=== PATIENT | male | born 1985 | race Hispanic/Latino ===

== ENCOUNTER 2016-04-20 17:35 | Emergency (ER) | payer MEDICAID ==
[2016-04-20 19:21] LABS: Basophils % (Auto) 0.5 % (0.0-1.8); Eosinophils % (Auto) 2.2 % (0.0-4.3); Hematocrit 38.2 % (35.5-45.6); Mean Corpuscular HGB Conc 34 % (32-34); Mean Corpuscular Hemoglobin 32 pg (28-32); Mean Corpuscular Volume 93 fl (84-94); Platelet Count 220 K/mm3 (140-440); Red Cell Distribution Width 12.8 % (13.2-15.2); White Blood Count 5.2 K/mm3 (4.5-11.0)
[2016-04-20 19:30] LABS: Alanine Aminotransferase 10 units/L (7-56); Albumin/Globulin Ratio 1.7 %; Alkaline Phosphatase 78 units/L (35-129); Anion Gap 15 mmol/L; Bilirubin,Total 0.2 mg/dL (0.1-1.2); Blood Urea Nitrogen 19 mg/dL (9-20); Calcium 8.6 mg/dL (8.4-10.2); Carbon Dioxide 29 mmol/L (22-30); Chloride 102.8 mmol/L (98-107); Glucose 91 mg/dL (75-100); Magnesium 2.4 mg/dL (1.7-2.3); Potassium 4.5 mmol/L (3.6-5.0); Sodium 142 mmol/L (137-145); Total Protein 6.4 g/dL (6.3-8.2)
--- NOTE | 2016-04-20 20:06 | Emergency Department Report ---
ED Dizziness HPI - General Chief Complaint: Dizziness Stated Complaint: BACK PAIN Time Seen by Provider: 04/20/16 20:04 Source: patient, EMS Mode of arrival: Stretcher Limitations: Physical Limitation - History of Present Illness Initial Comments: This is a 30-year-old gentleman with chronic lower back pain. He states he is walking up the stairs to this evening when he had sudden onset of excruciating pain in the lower back. He felt a sharp pain from his back that caused him to lose consciousness falling backwards down the stairs. He reports his mother came to his aid. She indicates she seemed somewhat dazed when she found him on the stairs. She tried to help him to his feet but he was unable to stand up due to difficulty with his right leg. He describes a sensation of no feeling in the right leg. MD Complaint: other (back pain) -: Sudden Timing: sudden onset History of Same: No History of Trauma: Yes Severity: moderate Improves With: nothing Worsens With: nothing - Related Data Home Medications Medication Instructions Recorded Confirmed Last Taken LORazepam [Ativan] 1 mg PO BID PRN 01/15/15 04/20/16 01/15/15 FLUoxetine [PROzac] 10 mg PO QDAY 01/27/16 04/20/16 Unknown risperiDONE [RisperiDONE] 1 mg PO QDAY 01/27/16 04/20/16 Unknown Previous Rx's Medication Instructions Recorded Last Taken Type HYDROcodone/APAP 5-325 [[place] 1 each PO Q6HR PRN #14 tablet 11/20/15 Unknown Rx 5/325] Cyclobenzaprine [Flexeril 10 MG 10 mg PO TID PRN #15 tablet 01/27/16 Unknown Rx TAB] traMADol [Ultram] 50 mg PO Q6HR PRN #20 tablet 01/27/16 Unknown Rx Allergies Allergy/AdvReac Type Severity Reaction Status Date / Time No Known Drug Allergies Allergy Unknown Verified 01/15/15 19:20 ED Review of Systems ROS: Stated complaint: BACK PAIN Other details as noted in HPI Constitutional: denies: chills, fever Eyes: denies: eye pain, eye discharge, vision change ENT: denies: ear pain, throat pain Respiratory: denies: cough, shortness of breath, wheezing Cardiovascular: denies: chest pain, palpitations Endocrine: no symptoms reported Gastrointestinal: denies: abdominal pain, nausea, diarrhea Genitourinary: denies: urgency, dysuria Musculoskeletal: back pain, other (leg pains). denies: joint swelling, arthralgia Skin: denies: rash, lesions Neurological: denies: headache, weakness, paresthesias Psychiatric: denies: anxiety, depression Hematological/Lymphatic: denies: easy bleeding, easy bruising ED Past Medical Hx - Past Medical History Hx CVA: Yes (?TIA) Hx Renal Disease: Yes (hx kidney stones) Hx Kidney Stones: Yes Hx Psychiatric Treatment: Yes (PTSD, ANXIETY,depression) Additional medical history: SPINAL STENOSIS, 4 BULGING DISKS - Surgical History Hx Appendectomy: Yes (LAPAROSCOPY) Additional Surgical History: HERNIA REPAIR X2 - Social History Smoking Status: Unknown if ever smoked - Medications Home Medications: Home Medications Medication Instructions Recorded Confirmed Last Taken Type LORazepam [Ativan] 1 mg PO BID PRN 01/15/15 04/20/16 01/15/15 History HYDROcodone/APAP 5-325 [[place] 1 each PO Q6HR PRN #14 tablet 11/20/15 04/20/16 Unknown Rx 5/325] Cyclobenzaprine [Flexeril 10 MG 10 mg PO TID PRN #15 tablet 01/27/16 04/20/16 Unknown Rx TAB] FLUoxetine [PROzac] 10 mg PO QDAY 01/27/16 04/20/16 Unknown History risperiDONE [RisperiDONE] 1 mg PO QDAY 01/27/16 04/20/16 Unknown History traMADol [Ultram] 50 mg PO Q6HR PRN #20 tablet 01/27/16 04/20/16 Unknown Rx ED Physical Exam - General Limitations: Physical Limitation General appearance: alert, in no apparent distress, other (marfanoid) - Head Head exam: Present: atraumatic, normocephalic - Eye Eye exam: Present: normal appearance, PERRL, EOMI - ENT ENT exam: Present: normal exam, normal orophraynx, mucous membranes moist - Neck Neck exam: Present: normal inspection - Respiratory Respiratory exam: Present: normal lung sounds bilaterally. Absent: respiratory distress - Cardiovascular Cardiovascular Exam: Present: regular rate, normal rhythm. Absent: systolic murmur, diastolic murmur, rubs, gallop - GI/Abdominal GI/Abdominal exam: Present: soft, normal bowel sounds - Rectal Rectal exam: Present: deferred - Extremities Exam Extremities exam: Present: normal inspection, full ROM. Absent: tenderness, joint swelling, calf tenderness - Back Exam Back exam: Present: tenderness (paralumbar region and mid aspect. NO bony stepoff) - Neurological Exam Neurological exam: Present: alert, oriented X3, CN II-XII intact, other (walks on heels and toes with slightly antalgic appearance) - Psychiatric Psychiatric exam: Present: normal mood, flat affect - Skin Skin exam: Present: warm, dry, intact, normal color. Absent: rash ED Course Vital Signs 04/20/16 04/20/16 04/20/16 18:19 18:26 18:49 Temperature 98.3 F Pulse Rate 132 H 107 H Respiratory 20 20 20 Rate Blood Pressure 128/74 Blood Pressure 128/74 137/94 [Left] O2 Sat by Pulse 98 98 99 Oximetry 04/20/16 04/20/16 20:27 21:27 Temperature Pulse Rate Respiratory 20 20 Rate Blood Pressure Blood Pressure [Left] O2 Sat by Pulse Oximetry - Reevaluation(s) Reevaluation #1: 04/20/16 21:53 This is a gentleman with a very odd affect in my opinion that his relationship seems to be somewhat odd with his mother as well his activity seemed to be just off. I state this only to emphasize that his initial presentation in the indicated that he had complete and sensation of the right leg and inability to have any control of it or motor strength at all. This clearly was not the case. As I was doing distracting activities and was clearly able to note the leg moving spontaneously and he appeared to have some sensation noted as well he did appetite downward Babinski as well. After obtaining x-rays and labs I did ask the patient to stand up he was able to do this without assistance. He is able to walk on heels and toes as well as to deep knee bend. Clearly he has strength in the legs. Discomfort but there seems to be some secondary gain with when he is not doing. I did find while here that he is father is in the hospital as well for auditory condition. I do wonder if there is some stressors and again some secondary gain with mother that are going on with the episode today. In regards to initial episode of falling down the stairs/having a syncopal episode I truly doubt this as well. Giving the patient the benefit of the doubt do not see any sign of ectopy do not see any electrolyte imbalance as a do not see anything to indicate intracranial pathology for his back pain is appropriate here. Safer home in my opinion ED Medical Decision Making - Lab Data Result diagrams: 04/20/16 18:36 04/20/16 18:36 - EKG Data -: EKG Interpreted by Me (sinus tachycardia at 104 bpm with normal axis and nonspecific q waves) - Radiology Data interpreted by me: Lumbar spine with good vertebral body alignment and no fractures noted no disc space narrowing. Critical care attestation.: If time is entered above; I have spent that time in minutes in the direct care of this critically ill patient, excluding procedure time. ED Disposition Clinical Impression: Syncope, non cardiac Lumbar spine strain Qualifiers: Encounter type: initial encounter Qualified Code(s): S39.012A - Strain of muscle, fascia and tendon of lower back, initial encounter Disposition: DISCHARGED TO HOME OR SELFCARE Is pt being admited?: No Does the pt Need Aspirin: No Condition: Stable Instructions: Syncope (ED) Additional Instructions: No strenuous activities x 1 week. Ibuprofen for anti-inflammatory effects. Consider gentle massage as well. Hydrocodones for pain. Referrals: PRIMARY CARE, [Primary Care Provider] - 3-5 Days Time of Disposition: 21:44
[2016-04-20] MEDS ORDERED: PERCOCET 5/325 PO ONE (20:14)
[2016-04-20 22:22] VITALS: BP 132/88
[2016-04-20] MEDS ORDERED: TORADOL ONE (22:33)
[2016-04-20] MEDS ORDERED: TORADOL IM ONE (22:35)
--- NOTE | 2016-04-21 09:25 | XRay Report ---
Lumbar spine 3 views: History: Low back pain, trauma. Findings: There is suspected osteopenia. Normal height of vertebral bodies and intervertebral disc with narrowing of the lumbosacral interspace. Sclerotic articular surfaces with early degenerative changes being more pronounced at the lumbosacral interspace. Impression: Degenerative changes predominantly lumbosacral interspace.
== END 2016-04-20 22:50 | disposition home or self-care (01) ==
LOC: ED 17:35
DX: S39.012A Strain of muscle, fascia and tendon of lower back, initial encounter (principal); R55 Syncope and collapse; Z86.73 Personal history of transient ischemic attack (TIA), and cerebral infarction without residual deficits; Z87.442 Personal history of urinary calculi; W10.9XXA Fall (on) (from) unspecified stairs and steps, initial encounter; Y93.9 Activity, unspecified; Y92.9 Unspecified place or not applicable; Y99.9 Unspecified external cause status
CPT/HCPCS: 36415; 72100; 80053; 82140; 83735; 84443; 85025; 93005; 93010; 96372; 99285; G0480; J1885; 80320

== ENCOUNTER 2016-06-12 16:18 | Emergency (ER) | payer MEDICAID ==
--- NOTE | 2016-06-12 16:48 | Emergency Department Report ---
Chief Complaint: Chest Pain Stated Complaint: CHEST PAIN Time Seen by Provider: 06/12/16 16:43 - HPI History of Present Illness: PT presents to ED for CP. PT states the cp has been continuous since the onset at 0700. PT states the pain feels like a burning in the left side of his chest. pt states he was given ASA for his pain but no improvement. - ROS Review of Systems: + cp + L arm pain - Exam Physical Exam: PT is non toxic, does appear pale. pt is tachycardic on my initial exam no focal weakness MSE screening note: Focused history and physical exam performed. Due to findings the following was ordered: ekg, xr, labs ED Disposition for MSE Condition: Stable
[2016-06-12 17:47] LABS: Urine Drugs of Abuse Note Disclamer
[2016-06-12 17:54] LABS: Bilirubin,Urine NEG (Negative); Blood,Urine NEG (Negative); Ketones,Urine NEG (Negative); Leukocyte Esterase,Urine NEG (Negative); Mucus,Urine 2+ /HPF; Nitrite,Urine NEG (Negative); Protein,Urine <15 mg/dL mg/dL (Negative); Urobilinogen,Urine < 2.0 mg/dL (<2.0)
[2016-06-12 18:40] LABS: Basophils % (Auto) 0.3 % (0.0-1.8); Eosinophils % (Auto) 0.1 % (0.0-4.3); Hematocrit 41.5 % (35.5-45.6); Hemoglobin 14.1 gm/dl (11.8-15.2); Mean Corpuscular HGB Conc 34 % (32-34); Mean Corpuscular Hemoglobin 32 pg (28-32); Mean Corpuscular Volume 93 fl (84-94); Platelet Count 249 K/mm3 (140-440); Red Blood Count 4.49 M/mm3 (3.65-5.03); Red Cell Distribution Width 12.9 % (13.2-15.2); White Blood Count 8.3 K/mm3 (4.5-11.0)
[2016-06-12 19:07] LABS: Alanine Aminotransferase 50 units/L (7-56); Albumin 4.6 g/dL (3.9-5); Albumin/Globulin Ratio 1.8 %; Alkaline Phosphatase 63 units/L (35-129); Anion Gap 15 mmol/L; BUN/Creatinine Ratio 22.22; Bilirubin,Total 0.5 mg/dL (0.1-1.2); Blood Urea Nitrogen 20 mg/dL (9-20); Calcium 9.7 mg/dL (8.4-10.2); Carbon Dioxide 27 mmol/L (22-30); Chloride 105.3 mmol/L (98-107); Creatine Kinase 153 units/L (55-170); Creatine Kinase MB < 1.0 ng/mL (0.0-4.0); Glucose 98 mg/dL (75-100); Lipase 31 units/L (13-60); Potassium 4.6 mmol/L (3.6-5.0); Sodium 143 mmol/L (137-145); Total Protein 7.2 g/dL (6.3-8.2)
[2016-06-12 20:52] VITALS: BP 147/107
--- NOTE | 2016-06-13 07:26 | XRay Report ---
ROUTINE CHEST, TWO VIEWS: HISTORY: chest pain. The trachea, heart, mediastinal contour, lung herrera and bony thorax are unremarkable. IMPRESSION: Unremarkable chest x-ray.
--- NOTE | 2016-06-13 15:18 | ED Elopement Review ---
ED Pt Elopement review - Results review Lab results: Laboratory Tests 06/12/16 06/12/16 06/12/16 17:40 17:40 18:31 WBC 8.3 RBC 4.49 Hgb 14.1 Hct 41.5 MCV 93 MCH 32 MCHC 34 RDW 12.9 L Plt Count 249 Lymph % (Auto) 22.4 [place] % (Auto) 9.3 H Eos % (Auto) 0.1 Baso % (Auto) 0.3 Lymph # 1.9 [place] # 0.8 Eos # 0.0 Baso # 0.0 Seg Neutrophils % 67.9 Seg Neutrophils # 5.6 Sodium Potassium Chloride Carbon Dioxide Anion Gap BUN Creatinine Estimated GFR BUN/Creatinine Ratio Glucose Calcium Total Bilirubin AST ALT Alkaline Phosphatase Total Creatine Kinase CK-MB (CK-2) CK-MB (CK-2) Rel Index Troponin T Total Protein Albumin Albumin/Globulin Ratio Lipase Urine Color Yellow Urine Turbidity Clear Urine pH 5.0 Ur Specific Bradley 1.026 Urine Protein <15 mg/dl Urine Glucose (UA) Neg Urine Ketones Neg Urine Blood Neg Urine Nitrite Neg Urine Bilirubin Neg Urine Urobilinogen < 2.0 Ur Leukocyte Esterase Neg Urine WBC (Auto) 1.0 Urine RBC (Auto) 1.0 Urine Mucus 2+ Urine Opiates Screen Presumptive negative Urine Methadone Screen Presumptive negative Ur Barbiturates Screen Presumptive negative Ur Phencyclidine Scrn Presumptive negative Ur Amphetamines Screen Presumptive negative U Benzodiazepines Scrn Presumptive negative Urine Cocaine Screen Presumptive negative U Marijuana (THC) Screen Presumptive negative Drugs of Abuse Note Disclamer 06/12/16 06/12/16 18:31 23:24 WBC RBC Hgb Hct MCV MCH MCHC RDW Plt Count Lymph % (Auto) [place] % (Auto) Eos % (Auto) Baso % (Auto) Lymph # [place] # Eos # Baso # Seg Neutrophils % Seg Neutrophils # Sodium 143 Potassium 4.6 Chloride 105.3 Carbon Dioxide 27 Anion Gap 15 BUN 20 Creatinine 0.9 Estimated GFR > 60 BUN/Creatinine Ratio 22.22 Glucose 98 Calcium 9.7 Total Bilirubin 0.5 AST 35 ALT 50 Alkaline Phosphatase 63 Total Creatine Kinase 153 CK-MB (CK-2) < 1.0 CK-MB (CK-2) Rel Index 0.6 Troponin T < 0.010 < 0.010 Total Protein 7.2 Albumin 4.6 Albumin/Globulin Ratio 1.8 Lipase 31 Urine Color Urine Turbidity Urine pH Ur Specific Bradley Urine Protein Urine Glucose (UA) Urine Ketones Urine Blood Urine Nitrite Urine Bilirubin Urine Urobilinogen Ur Leukocyte Esterase Urine WBC (Auto) Urine RBC (Auto) Urine Mucus Urine Opiates Screen Urine Methadone Screen Ur Barbiturates Screen Ur Phencyclidine Scrn Ur Amphetamines Screen U Benzodiazepines Scrn Urine Cocaine Screen U Marijuana (THC) Screen Drugs of Abuse Note - Call Back decision Pt Call Back Decision: No action required
== END 2016-06-13 02:15 | disposition left against medical advice (07) ==
LOC: ED 16:18 → EEVIPCON 16:18 → ED 06-13 02:15
DX: R07.9 Chest pain, unspecified (principal); M79.602 Pain in left arm; Z53.21 Procedure and treatment not carried out due to patient leaving prior to being seen by health care provider
CPT/HCPCS: 36415; 71020; 80053; 80307; 81001; 82550; 82553; 83690; 84484; 85025; 93005; 93010

== ENCOUNTER 2016-07-10 17:25 | Emergency (ER) | payer MEDICAID ==
[2016-07-10] MEDS ORDERED: NACL 0.9% 1000 ML 1,000 ML IV ONE (20:12)
[2016-07-10 20:42] LABS: Basophils % (Auto) 0.4 % (0.0-1.8); Eosinophils % (Auto) 0.3 % (0.0-4.3); Hematocrit 42.7 % (35.5-45.6); Hemoglobin 14.7 gm/dl (11.8-15.2); Mean Corpuscular HGB Conc 35 % (32-34); Mean Corpuscular Hemoglobin 32 pg (28-32); Mean Corpuscular Volume 92 fl (84-94); Platelet Count 249 K/mm3 (140-440); Red Blood Count 4.63 M/mm3 (3.65-5.03); Red Cell Distribution Width 13.1 % (13.2-15.2); White Blood Count 8.4 K/mm3 (4.5-11.0)
[2016-07-10 20:52] LABS: INR 1.03 (0.87-1.13); Partial Thromboplastin Time 28.1 Sec. (24.2-36.6)
[2016-07-10 21:05] LABS: Alanine Aminotransferase 23 units/L (7-56); Albumin 4.4 g/dL (3.9-5); Albumin/Globulin Ratio 1.6 %; Alkaline Phosphatase 67 units/L (35-129); BUN/Creatinine Ratio 23.75; Bilirubin,Total 0.4 mg/dL (0.1-1.2); Blood Urea Nitrogen 19 mg/dL (9-20); Calcium 9.4 mg/dL (8.4-10.2); Carbon Dioxide 25 mmol/L (22-30); Glucose 100 mg/dL (75-100); Lipase 23 units/L (13-60); Potassium 4.2 mmol/L (3.6-5.0); Sodium 142 mmol/L (137-145); Total Protein 7.2 g/dL (6.3-8.2)
[2016-07-10 21:06] LABS: Anion Gap 19 mmol/L; Chloride 102.3 mmol/L (98-107)
[2016-07-10] MEDS: MORPHINE IV ONE (23:38)
[2016-07-10] MEDS: NACL 0.9% 1000 ML 1,000 ML IV ONE (23:38)
[2016-07-10] MEDS: ZOFRAN IV ONE (23:38)
[2016-07-10] MEDS ORDERED: NACL ONE (23:41)
--- NOTE | 2016-07-11 01:09 | Cat Scan Report ---
FINAL REPORT PROCEDURE: CT ABDOMEN PELVIS W CON TECHNIQUE: Computerized axial tomography of the abdomen and pelvis was performed after the IV injection of iodinated nonionic contrast. Oral contrast was not given. HISTORY: Abdominal pain and recurrent right inguinal hernia. COMPARISON: Prior abdomen and pelvic CT scans of January 10, 2016 and October 09 2015 FINDINGS: Visualized lower thorax: No significant abnormality. Liver: Normal size and attenuation. Spleen: Normal size and attenuation. Gallbladder and biliary system: Normal. Pancreas: Normal. Adrenals: Normal. Kidneys: Normal. GI tract: There is mild sigmoid colon diverticulosis but there is no CT evidence of diverticulitis. The bowel appears unremarkable otherwise when considering of oral contrast. The appendix is not identified. The reports of the prior CT scans described that the patient has had a prior appendectomy. There are surgical clips in the right lower quadrant. There is no CT evidence of inguinal hernia on the right or left.. Lymph nodes and mesentery: Normal. Vasculature: Normal. Bladder: Normal. Reproductive organs: Normal. Peritoneum: No free fluid. Musculoskeletal structures: No significant abnormality. Other: None. IMPRESSION: 1. There is no CT evidence of distinct acute finding in the abdomen or pelvis. 2. There is mild sigmoid colon diverticulosis but there is no CT evidence of diverticulitis. 3. There is no CT evidence of inguinal hernia.
--- NOTE | 2016-07-11 01:25 | Emergency Department Report ---
ED Abdominal Pain HPI - General Chief Complaint: GI Bleed Stated Complaint: SYNCOPAL EPISODE Time Seen by Provider: 07/10/16 22:35 Source: patient, family Mode of arrival: Stretcher Limitations: Other - History of Present Illness Initial Comments: 30 yo male with a past medical history schizophrenia, PTSD, anxiety, kidney stones, and bilateral inguinal hernia repair presents to the hospital with complaint of right inguinal pain with possible recurrent hernia, black stools today, and a syncopal episode. For the past 2 weeks patient has noticed increased swelling to right inguinal area and is concerned about recurrent hernia. Patient has had 2 surgeries to this area in the past with last in 2009. Patient also had a left inguinal hernia repair 2009. The last several days patient has had a constant sharp and aching pain to the right lower quadrant and lower abdomen area. Rated 10/10 in intensity without alleviating factors. Pain worsened palpation. Patient has not had much to eat or drink today secondary to pain and he slept for 14 hours today. 3 hours prior to arrival patient stood up and then had a syncopal episode witnessed by his mother. She states he was passed out for a couple seconds. Patient denies headache, chest pain, shortness of breath, nausea, vomiting, hematochezia, or hematemesis. He has complaint of black tarry stools today as per mother Severity scale (0 -10): 9 - Related Data Home Medications Medication Instructions Recorded Confirmed Last Taken LORazepam [Ativan] 1 mg PO BID PRN 01/15/15 04/20/16 01/15/15 FLUoxetine [PROzac] 10 mg PO QDAY 01/27/16 04/20/16 Unknown risperiDONE [RisperiDONE] 1 mg PO QDAY 01/27/16 04/20/16 Unknown Previous Rx's Medication Instructions Recorded Last Taken Type Cyclobenzaprine [Flexeril 10 MG 10 mg PO TID PRN #15 tablet 01/27/16 Unknown Rx TAB] traMADol [Ultram] 50 mg PO Q6HR PRN #20 tablet 01/27/16 Unknown Rx Docusate Sodium [Colace] 100 mg PO BID PRN #20 capsule 07/11/16 Unknown Rx HYDROcodone/APAP 5-325 [[place] 1 each PO Q6HR PRN #15 tablet 07/11/16 Unknown Rx 5-325 mg TAB] Ondansetron [Zofran Odt] 4 mg PO Q8HR PRN #20 tab.rapdis 07/11/16 Unknown Rx Allergies Allergy/AdvReac Type Severity Reaction Status Date / Time No Known Drug Allergies Allergy Unknown Verified 06/12/16 16:54 ED Review of Systems ROS: Stated complaint: SYNCOPAL EPISODE Other details as noted in HPI Comment: All other systems reviewed and negative Other: Constitutional: No fevers chills Eyes: No eye pain visual changes ENT: No ear pain or throat pain Neck: Denies pain Respiratory: Denies cough wheezing shortness of breath Cardiovascular: Denies chest pain, palpitations GI: Per HPI : Denies dysuria Musculoskeletal: Denies back pain Skin: Denies rash, lesions, erythema Neurologic: Denies headache, numbness, weakness Psychiatric: Denies suicidal ideation, hallucinations ED Past Medical Hx - Past Medical History Hx CVA: Yes (?TIA) Hx Renal Disease: Yes (hx kidney stones) Hx Kidney Stones: Yes Hx Psychiatric Treatment: Yes (PTSD, ANXIETY,depression/ schizophrenia) Additional medical history: SPINAL STENOSIS, 4 BULGING DISKS - Surgical History Hx Appendectomy: Yes (LAPAROSCOPY) Additional Surgical History: Right inguinal hernia repair for the second time in 2009, left inguinal hernia repair in 2009 - Social History Smoking Status: Never Smoker Substance Use Type: None - Medications Home Medications: Home Medications Medication Instructions Recorded Confirmed Last Taken Type LORazepam [Ativan] 1 mg PO BID PRN 01/15/15 04/20/16 01/15/15 History Cyclobenzaprine [Flexeril 10 MG 10 mg PO TID PRN #15 tablet 01/27/16 04/20/16 Unknown Rx TAB] FLUoxetine [PROzac] 10 mg PO QDAY 01/27/16 04/20/16 Unknown History risperiDONE [RisperiDONE] 1 mg PO QDAY 01/27/16 04/20/16 Unknown History traMADol [Ultram] 50 mg PO Q6HR PRN #20 tablet 01/27/16 04/20/16 Unknown Rx Docusate Sodium [Colace] 100 mg PO BID PRN #20 capsule 07/11/16 Unknown Rx HYDROcodone/APAP 5-325 [[place] 1 each PO Q6HR PRN #15 tablet 07/11/16 Unknown Rx 5-325 mg TAB] Ondansetron [Zofran Odt] 4 mg PO Q8HR PRN #20 tab.rapdis 07/11/16 Unknown Rx ED Physical Exam - General Limitations: Other - Other Other exam information: General: No limitations, patient is alert in no acute distress Head exam: Atraumatic, normocephalic Eyes exam: Normal appearance, pupils equal reactive to light, extraocular movements intact ENT: Moist mucous membrane, normal oropharynx Neck exam: Normal inspection, full range of motion, no meningismus nontender Respiratory exam: Clear to auscultation bilateral, no wheezes, rales, crackles Cardiovascular: Normal rate and rhythm, normal heart sounds Abdomen: Soft, mild questionable right inguinal area bulging and appears reducible. No scrotal swelling or testicular pain. Rectal: Guaiac positive brown/green stool. No gross blood or melena detected Extremity: Full range of motion normal inspection no deformity Back: Normal Inspection, full range of motion, no tenderness Neurologic: Alert, oriented x3, cranial nerves intact, no motor or sensory deficit Psychiatric: normal affect, normal mood Skin: Warm, dry, intact ED Course Vital Signs 07/10/16 07/10/16 07/10/16 19:59 23:18 23:35 Temperature 98.2 F 98.2 F Pulse Rate 88 78 Pulse Rate [ 80 Lying] Pulse Rate [ 82 Sitting] Pulse Rate [ 112 H Standing] Respiratory 16 16 Rate Blood Pressure 128/92 Blood Pressure 128/92 132/84 [Left] Blood Pressure 130/87 [Lying] Blood Pressure 134/93 [Sitting] Blood Pressure 142/95 [Standing] O2 Sat by Pulse 100 99 Oximetry 07/11/16 01:42 Temperature 98.3 F Pulse Rate 79 Pulse Rate [ Lying] Pulse Rate [ Sitting] Pulse Rate [ Standing] Respiratory 15 Rate Blood Pressure Blood Pressure 125/83 [Left] Blood Pressure [Lying] Blood Pressure [Sitting] Blood Pressure [Standing] O2 Sat by Pulse 100 Oximetry - Reevaluation(s) Reevaluation #1: 07/11/16 01:25 Patient received morphine and Zofran with some improvement in pain but requesting additional dose at this time. Orthostatics were positive in revealing a heart rate increased greater than 20 bpm was standing. Patient receiving the rest of his 1 L of normal saline in addition to repeat dose of morphine brought appears to be comfortable without acute distress ED Medical Decision Making - Lab Data Result diagrams: 07/10/16 20:14 07/10/16 20:14 Lab Results 07/10/16 07/10/16 07/10/16 Range/Units 20:14 20:14 20:14 WBC 8.4 (4.5-11.0) K/mm3 RBC 4.63 (3.65-5.03) M/mm3 Hgb 14.7 (11.8-15.2) gm/dl Hct 42.7 (35.5-45.6) % MCV 92 (84-94) fl MCH 32 (28-32) pg MCHC 35 H (32-34) % RDW 13.1 L (13.2-15.2) % Plt Count 249 (140-440) K/mm3 Lymph % (Auto) 24.5 (13.4-35.0) % [place] % (Auto) 9.1 H (0.0-7.3) % Eos % (Auto) 0.3 (0.0-4.3) % Baso % (Auto) 0.4 (0.0-1.8) % Lymph # 2.1 (1.2-5.4) K/mm3 [place] # 0.8 (0.0-0.8) K/mm3 Eos # 0.0 (0.0-0.4) K/mm3 Baso # 0.0 (0.0-0.1) K/mm3 Seg Neutrophils % 65.7 (40.0-70.0) % Seg Neutrophils # 5.5 (1.8-7.7) K/mm3 PT 13.4 (12.2-14.9) Sec. INR 1.03 (0.87-1.13) APTT 28.1 (24.2-36.6) Sec. Sodium 142 (137-145) mmol/L Potassium 4.2 (3.6-5.0) mmol/L Chloride 102.3 (98-107) mmol/L Carbon Dioxide 25 (22-30) mmol/L Anion Gap 19 mmol/L BUN 19 (9-20) mg/dL Creatinine 0.8 (0.8-1.5) mg/dL Estimated GFR > 60 ml/min BUN/Creatinine Ratio 23.75 % Glucose 100 (75-100) mg/dL Calcium 9.4 (8.4-10.2) mg/dL Total Bilirubin 0.4 (0.1-1.2) mg/dL AST 20 (5-40) units/L ALT 23 (7-56) units/L Alkaline Phosphatase 67 (35-129) units/L Total Protein 7.2 (6.3-8.2) g/dL Albumin 4.4 (3.9-5) g/dL Albumin/Globulin Ratio 1.6 % Lipase 23 (13-60) units/L Blood Type Antibody Screen TAM Antibody Screen 07/10/16 Range/Units 20:25 WBC (4.5-11.0) K/mm3 RBC (3.65-5.03) M/mm3 Hgb (11.8-15.2) gm/dl Hct (35.5-45.6) % MCV (84-94) fl MCH (28-32) pg MCHC (32-34) % RDW (13.2-15.2) % Plt Count (140-440) K/mm3 Lymph % (Auto) (13.4-35.0) % [place] % (Auto) (0.0-7.3) % Eos % (Auto) (0.0-4.3) % Baso % (Auto) (0.0-1.8) % Lymph # (1.2-5.4) K/mm3 [place] # (0.0-0.8) K/mm3 Eos # (0.0-0.4) K/mm3 Baso # (0.0-0.1) K/mm3 Seg Neutrophils % (40.0-70.0) % Seg Neutrophils # (1.8-7.7) K/mm3 PT (12.2-14.9) Sec. INR (0.87-1.13) APTT (24.2-36.6) Sec. Sodium (137-145) mmol/L Potassium (3.6-5.0) mmol/L Chloride (98-107) mmol/L Carbon Dioxide (22-30) mmol/L Anion Gap mmol/L BUN (9-20) mg/dL Creatinine (0.8-1.5) mg/dL Estimated GFR ml/min BUN/Creatinine Ratio % Glucose (75-100) mg/dL Calcium (8.4-10.2) mg/dL Total Bilirubin (0.1-1.2) mg/dL AST (5-40) units/L ALT (7-56) units/L Alkaline Phosphatase (35-129) units/L Total Protein (6.3-8.2) g/dL Albumin (3.9-5) g/dL Albumin/Globulin Ratio % Lipase (13-60) units/L Blood Type O POSITIVE Antibody Screen TNR TAM Antibody Screen Negative - EKG Data -: EKG Interpreted by Me (nsr rate 94, jaxson, septal q) - EKG Data When compared to previous EKG there are: no significant change (compared to 06/12) - Radiology Data Radiology results: report reviewed (CT abdomen and pelvis IV contrast: No acute findings. Mild sigmoid colon diverticulosis but no diverticulitis. No CT evidence of inguinal hernia) - Medical Decision Making I believe that patient's syncopal episode was related to orthostasis while standing. Patient has not had a drink today secondary to abdominal pain. Patient received 1 L of IV fluids prior to discharge Patient does have guaiac positive stools but they are brown/green in color without gross melena or hematochezia. Normal H&H without signs of anemia. Patient was to be encouraged to avoid NSAIDs at this time and GI follow-up will be provided. For persistent abdominal pain there is no specific cause identified. No recurrent hernia or CT abnormality. Patient be treated symptomatically with pain medication and nausea. - Differential Diagnosis recurrent hernia, renal colic, UTI, dehydration, anemia, PUD Critical Care Time: No Critical care attestation.: If time is entered above; I have spent that time in minutes in the direct care of this critically ill patient, excluding procedure time. ED Disposition Clinical Impression: Abdominal pain, Dehydration, Orthostatic syncope, Guaiac + stool Disposition: DISCHARGED TO HOME OR SELFCARE Is pt being admited?: No Does the pt Need Aspirin: No Condition: Stable Instructions: Rectal Bleeding (ED), Dehydration (ED), Syncope (ED), Acute Abdominal Pain (ED) Additional Instructions: Continue drinking plenty of fluids and eat appropriately at home. Take the medication as prescribed. Hydrocodone is a narcotic and may cause drowsiness and constipation. Take a stool softener Colace as needed. It is very important that you follow-up with a GI doctor for further workup and evaluation since no cause of your blood in your stools has been identified today. Please return if symptoms worsen. Prescriptions: Docusate Sodium [Colace] 100 mg PO BID PRN #20 capsule PRN Reason: Constipation HYDROcodone/APAP 5-325 [[place] 5-325 mg TAB] 1 each PO Q6HR PRN #15 tablet PRN Reason: Pain Ondansetron [Zofran Odt] 4 mg PO Q8HR PRN #20 tab.rapdis PRN Reason: Nausea And Vomiting Referrals: PRIMARY CARE, [Primary Care Provider] - 3-5 Days SHYLA BRADLEY MD [Staff Physician] - 2-3 Days Forms: Accompanied Note Time of Disposition: 02:00
[2016-07-11] MEDS: MORPHINE IV ONE (01:42)
[2016-07-11 01:43] VITALS: BP 125/83
== END 2016-07-11 02:07 | disposition home or self-care (01) ==
LOC: ED 17:25
DX: R19.5 Other fecal abnormalities (principal); R10.30 Lower abdominal pain, unspecified; R55 Syncope and collapse; E86.0 Dehydration; F20.9 Schizophrenia, unspecified
CPT/HCPCS: 36415; 74177; 80053; 82271; 83690; 85025; 85610; 85730; 86850; 86900; 86901; 93005; 93010; 96361; 96374; 96375; 96376; 99285; J2270; J2405; J7030; Q9967

== ENCOUNTER 2016-11-20 04:59 | Emergency (ER) | payer MEDICAID ==
[2016-11-20 06:02] VITALS: BP 125/87
[2016-11-20 07:04] LABS: Basophils % (Auto) 0.5 % (0.0-1.8); Eosinophils % (Auto) 0.9 % (0.0-4.3); Hemoglobin 13.5 gm/dl (11.8-15.2); Mean Corpuscular HGB Conc 35 % (32-34); Mean Corpuscular Hemoglobin 31 pg (28-32); Mean Corpuscular Volume 90 fl (84-94); Platelet Count 243 K/mm3 (140-440); Red Blood Count 4.33 M/mm3 (3.65-5.03); Red Cell Distribution Width 13.3 % (13.2-15.2); White Blood Count 6.8 K/mm3 (4.5-11.0)
[2016-11-20 07:05] LABS: Anion Gap 19 mmol/L; BUN/Creatinine Ratio 16.25; Blood Urea Nitrogen 13 mg/dL (9-20); Calcium 9.3 mg/dL (8.4-10.2); Carbon Dioxide 24 mmol/L (22-30); Chloride 102.4 mmol/L (98-107); Glucose 104 mg/dL (75-100); Sodium 141 mmol/L (137-145)
--- NOTE | 2016-11-20 07:15 | Cat Scan Report ---
FINAL REPORT EXAM: CT HEAD/BRAIN WO CON HISTORY: s/p fall TECHNIQUE: CT imaging acquired through the head without intravenous contrast. Transaxial reformations are provided. PRIORS: 01/10/2016 FINDINGS: The ventricles, cisterns and sulci are normal. No intraparenchymal or extra-axial mass, hemorrhage, or mass effect. Mejia and white-matter differentiation is normal. Normal spherical shape of the globes. Paranasal sinuses and mastoid air cells are clear. No skull or facial fracture visualized. IMPRESSION: No acute intracranial abnormality.
--- NOTE | 2016-11-20 07:17 | Cat Scan Report ---
FINAL REPORT EXAM: CT CERVICAL SPINE WO CON HISTORY: s/p fall TECHNIQUE: CT imaging is acquired through the cervical spine without contrast. Transaxial, coronal and sagittal reformations are provided. PRIORS: 01/10/2016 FINDINGS: The cervical spine is intact. Vertebral body heights are preserved. No acute fracture or listhesis. Atlanto-dens interval and odontoid process are intact. Intervertebral disc spaces are preserved. No perivertebral soft tissue swelling or hematoma identified. Limited soft tissue exam of the visualized neck is unremarkable. IMPRESSION: No acute cervical spine fracture identified. Correlate with physical exam and follow up as warranted.
== END 2016-11-20 12:12 | disposition left against medical advice (07) ==
LOC: ED 04:59
DX: R51 Headache (principal); M54.2 Cervicalgia; Z53.21 Procedure and treatment not carried out due to patient leaving prior to being seen by health care provider
CPT/HCPCS: 36415; 70450; 72125; 80048; 85025; 93005; 93010

== ENCOUNTER 2017-11-25 22:39 | Emergency (ER) | payer SELFPAY ==
[2017-11-25 23:22] VITALS: BP 150/101
[2017-11-26 00:46] LABS: Basophils % (Auto) 0.7 % (0.0-1.8); Eosinophils # (Auto) 0.2 K/mm3 (0.0-0.4); Eosinophils % (Auto) 3.7 % (0.0-4.3); Hematocrit 37.9 % (35.5-45.6); Hemoglobin 12.9 gm/dl (11.8-15.2); Lymphocytes # (Auto) 2.2 K/mm3 (1.2-5.4); Lymphocytes % (Auto) 36.4 % (13.4-35.0); Mean Corpuscular HGB Conc 34 % (32-34); Mean Corpuscular Hemoglobin 31 pg (28-32); Mean Corpuscular Volume 92 fl (84-94); Monocytes # (Auto) 0.6 K/mm3 (0.0-0.8); Monocytes % (Auto) 10.2 % (0.0-7.3); Platelet Count 240 K/mm3 (140-440); Red Blood Count 4.11 M/mm3 (3.65-5.03); Red Cell Distribution Width 14.1 % (13.2-15.2)
--- NOTE | 2017-11-26 01:05 | XRay Report ---
FINAL REPORT EXAM: XR SPINE LUMBOSACRAL 2-3V HISTORY: back pain TECHNIQUE: 3 views of the lumbar spine PRIORS: None. FINDINGS: L5-S1 is not demonstrated on the lateral view. The vertebral bodies are normal in height and alignment. The disc spaces appear well-preserved. The soft tissues are unremarkable. IMPRESSION: Limited evaluation of the lumbar spine is unremarkable.
[2017-11-26 01:10] LABS: Alanine Aminotransferase 46 units/L (7-56); BUN/Creatinine Ratio 16; Blood Urea Nitrogen 11 mg/dL (9-20); Calcium 9.2 mg/dL (8.4-10.2); Hemolysis Index 21
== END 2017-11-26 00:26 | disposition left against medical advice (07) ==
LOC: ED 22:39
DX: M54.2 Cervicalgia (principal); Z53.21 Procedure and treatment not carried out due to patient leaving prior to being seen by health care provider
CPT/HCPCS: 36415; 72100; 80053; 85025; 93005; 93010

== ENCOUNTER 2017-12-14 15:42 | Emergency (ER) | payer SELFPAY ==
[2017-12-14 16:09] VITALS: BP 139/89
--- NOTE | 2017-12-14 17:12 | Cat Scan Report ---
FINAL REPORT EXAM: CT HEAD/BRAIN WO CON HISTORY: confusion, left arm weakness. TECHNIQUE: Noncontrast CT axial images of the brain. PRIORS: 20 November 2016. FINDINGS: No parenchymal mass, mass effect, hemorrhage, midline shift or hydrocephalus. No evidence of acute cortical infarct. No abnormal, extra-axial fluid or air collection. Osseous calvarium grossly intact. IMPRESSION: 1. No acute intracranial findings.
== END 2017-12-14 20:56 | disposition left against medical advice (07) ==
LOC: ED 15:42
DX: R20.0 Anesthesia of skin (principal); Z53.21 Procedure and treatment not carried out due to patient leaving prior to being seen by health care provider
CPT/HCPCS: 70450

== ENCOUNTER 2018-10-04 21:18 | Emergency (ER) | payer MEDICAID ==
[2018-10-04 21:47] VITALS: BP 136/90
--- NOTE | 2018-10-04 21:59 | Event Note ---
ED Screening Note Date of service: 10/04/18 Time: 21:54 ED Screening Note: 33 y/o male comes in for back pain. Patient fell on his back while at the park this evening. pmh Chronic back pain. This initial assessment/diagnostic orders/clinical plan/treatment(s) is/are subject to change based on patients health status, clinical progression and re- assessment by fellow clinical providers in the ED. Further treatment and workup at subsequent clinical providers discretion. Patient/guardian urged not to elope from the ED as their condition may be serious if not clinically assessed and managed. Initial orders include:
[2018-10-04] MEDS ORDERED: FLEXERIL PO ONE (22:43)
[2018-10-04] MEDS ORDERED: TORADOL IM ONE (22:43)
--- NOTE | 2018-10-04 22:45 | XRay Report ---
LUMBAR SPINE, 3 VIEWS INDICATION / CLINICAL INFORMATION: fall on back now with pain.. COMPARISON: Vertebral body heights and disc spaces are maintained. Posterior alignment is normal. No visible frac ture or significant degenerative change. FINDINGS: No significant abnormality. Signer Name: Denise Mcmahan MD Signed: 10/04/2018 10:41 PM Workstation Name: [id number]
--- NOTE | 2018-10-04 22:47 | Emergency Department Report ---
ED Back Pain/Injury HPI - General Chief Complaint: Back Pain/Injury Stated Complaint: BACK PAIN Time Seen by Provider: 10/04/18 22:32 Source: patient Limitations: No Limitations - History of Present Illness Initial Comments: Patient is a 33-year-old male who presents to the emergency room with complaints of lower back pain that began today. He states he was playing at the park with his kids and fell onto his lower back. States he has a history of chronic back pain with a hx of degenerative disc disease and spinal stenosis per patient. He denies any bowel or bladder incontinence. He does not report any numbness or weakness. Patient denies any past medical history or allergies to medications. - Related Data Home Medications Medication Instructions Recorded Confirmed Last Taken LORazepam [Ativan] 1 mg PO BID PRN 01/15/15 04/20/16 01/15/15 FLUoxetine [PROzac] 10 mg PO QDAY 01/27/16 04/20/16 Unknown risperiDONE [RisperiDONE] 1 mg PO QDAY 01/27/16 04/20/16 Unknown Previous Rx's Medication Instructions Recorded Last Taken Type Cyclobenzaprine [Flexeril 10 MG 10 mg PO TID PRN #15 tablet 01/27/16 Unknown Rx TAB] traMADol [Ultram] 50 mg PO Q6HR PRN #20 tablet 01/27/16 Unknown Rx Docusate Sodium [Colace] 100 mg PO BID PRN #20 capsule 07/11/16 Unknown Rx HYDROcodone/APAP 5-325 [[place] 1 each PO Q6HR PRN #15 tablet 07/11/16 Unknown Rx 5-325 mg TAB] Ondansetron [Zofran Odt] 4 mg PO Q8HR PRN #20 tab.rapdis 07/11/16 Unknown Rx Cyclobenzaprine [Flexeril] 10 mg PO QHS PRN #10 tablet 10/04/18 Unknown Rx Naproxen [Naprosyn TAB] 500 mg PO BID PRN #20 tablet 10/04/18 Unknown Rx Allergies Allergy/AdvReac Type Severity Reaction Status Date / Time No Known Drug Allergies Allergy Unknown Verified 06/12/16 16:54 ED Review of Systems ROS: Stated complaint: BACK PAIN Other details as noted in HPI Comment: All other systems reviewed and negative ED Past Medical Hx - Past Medical History Previous Medical History?: Yes Hx CVA: Yes (?TIA) Hx Renal Disease: Yes (hx kidney stones) Hx Kidney Stones: Yes Hx Psychiatric Treatment: Yes (PTSD, ANXIETY,depression/ schizophrenia) Additional medical history: SPINAL STENOSIS, 4 BULGING DISKS - Surgical History Past Surgical History?: Yes Hx Appendectomy: Yes Additional Surgical History: Right inguinal hernia repair for the second time in 2009, left inguinal hernia repair in 2009 - Social History Smoking Status: Never Smoker Substance Use Type: None - Medications Home Medications: Home Medications Medication Instructions Recorded Confirmed Last Taken Type LORazepam [Ativan] 1 mg PO BID PRN 01/15/15 04/20/16 01/15/15 History Cyclobenzaprine [Flexeril 10 MG 10 mg PO TID PRN #15 tablet 01/27/16 04/20/16 Unknown Rx TAB] FLUoxetine [PROzac] 10 mg PO QDAY 01/27/16 04/20/16 Unknown History risperiDONE [RisperiDONE] 1 mg PO QDAY 01/27/16 04/20/16 Unknown History traMADol [Ultram] 50 mg PO Q6HR PRN #20 tablet 01/27/16 04/20/16 Unknown Rx Docusate Sodium [Colace] 100 mg PO BID PRN #20 capsule 07/11/16 Unknown Rx HYDROcodone/APAP 5-325 [[place] 1 each PO Q6HR PRN #15 tablet 07/11/16 Unknown Rx 5-325 mg TAB] Ondansetron [Zofran Odt] 4 mg PO Q8HR PRN #20 tab.rapdis 07/11/16 Unknown Rx Cyclobenzaprine [Flexeril] 10 mg PO QHS PRN #10 tablet 10/04/18 Unknown Rx Naproxen [Naprosyn TAB] 500 mg PO BID PRN #20 tablet 10/04/18 Unknown Rx ED Physical Exam - General Limitations: No Limitations General appearance: alert, in no apparent distress - Head Head exam: Present: atraumatic, normocephalic - Eye Eye exam: Present: normal appearance, PERRL - ENT ENT exam: Present: mucous membranes moist - Neck Neck exam: Present: normal inspection, full ROM. Absent: tenderness - Respiratory Respiratory exam: Present: normal lung sounds bilaterally. Absent: respiratory distress, wheezes, rales, rhonchi, stridor, chest wall tenderness, accessory muscle use, decreased breath sounds, prolonged expiratory - Cardiovascular Cardiovascular Exam: Present: regular rate, normal rhythm, normal heart sounds. Absent: systolic murmur, diastolic murmur, rubs, gallop - Back Exam Back exam: Present: normal inspection, full ROM, paraspinal tenderness (right sided lumbar paraspinal muscular TTP, no midline C-spine, T-spine, or L-spine tenderness, no step offs, no deformities). 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 Absent: motor sensory deficit - Psychiatric Psychiatric exam: Present: normal affect, normal mood - Skin Skin exam: Present: warm, dry, intact ED Course Vital Signs 10/04/18 10/04/18 21:29 23:30 Temperature 98.3 F Pulse Rate 97 H Respiratory 18 16 Rate Blood Pressure 136/90 O2 Sat by Pulse 97 Oximetry ED Medical Decision Making - Radiology Data Radiology results: report reviewed cc: FREDY GARAY Fluoro Time In Minutes: LUMBAR SPINE, 3 VIEWS INDICATION / CLINICAL INFORMATION: fall on back now with pain.. COMPARISON: Vertebral body heights and disc spaces are maintained. Posterior alignment is normal. No visible fracture or significant degenerative change. FINDINGS: No significant abnormality. Signer Name: Denise Mcmahan MD Signed: 10/04/2018 10:41 PM Workstation Name: [id number] Transcribed By: JR Dictated By: Denise Mcmahan MD Electronically Authenticated By: J - Medical Decision Making Patient is a 33-year-old male who presents to the emergency room with complaints of lower back pain that began today. He states he was playing at the park with his kids and fell onto his lower back. States he has a history of chronic back pain with a hx of degenerative disc disease and spinal stenosis per patient. He denies any bowel or bladder incontinence. He does not report any numbness or weakness. Patient denies any past medical history or allergies to medications. VSS. on exam: right sided lumbar paraspinal muscular TTP, no midline C-spine, T- spine, or L-spine tenderness, no step offs, no deformities, no focal neuro deficit. XR of the L-spine with No significant abnormality. pts discomfort treated while in the emergency department. pt given prescription for flexeril and naproxen. advised to please take medication as prescribed. Do not drive or operate heavy machinery while taking muscle relaxer. May use ice, rest, heat, epsom salt bath. Follow-up with the primary care doctor in the next 2-3 days. Return to the emergency room for any new or worsening symptoms. - Differential Diagnosis strain, sprain, fx, dislocation, DDD, herniated disc, sciatica, contusion Critical care attestation.: If time is entered above; I have spent that time in minutes in the direct care of this critically ill patient, excluding procedure time. ED Disposition Clinical Impression: Low back pain Qualifiers: Chronicity: acute Back pain laterality: right Sciatica presence: without sciatica Qualified Code(s): M54.5 - Low back pain Disposition: - TO HOME OR SELFCARE Is pt being admited?: No Does the pt Need Aspirin: No Condition: Stable Instructions: Acute Low Back Pain (ED) Additional Instructions: Please take medication as prescribed. Do not drive or operate heavy machinery while taking muscle relaxer. May use ice, rest, heat, epsom salt bath. Follow- up with the primary care doctor in the next 2-3 days. Return to the emergency room for any new or worsening symptoms. Prescriptions: Cyclobenzaprine [Flexeril] 10 mg PO QHS PRN #10 tablet PRN Reason: Muscle Spasm Naproxen [Naprosyn TAB] 500 mg PO BID PRN #20 tablet PRN Reason: pain Referrals: RADHA SOLER MD [Primary Care Provider] - 2-3 Days Time of Disposition: 23:27 Print Language: ERITREAN
== END 2018-10-04 23:35 | disposition home or self-care (01) ==
LOC: ED 21:18
DX: M54.5 Low back pain (principal); F32.9 Major depressive disorder, single episode, unspecified; F41.9 Anxiety disorder, unspecified; Z86.73 Personal history of transient ischemic attack (TIA), and cerebral infarction without residual deficits; Z90.49 Acquired absence of other specified parts of digestive tract; Z79.899 Other long term (current) drug therapy
CPT/HCPCS: 72100; 96372; 99283; J1885

== ENCOUNTER 2018-11-19 11:59 | Emergency (ER) | payer MEDICAID ==
[2018-11-19 12:23] VITALS: BP 111/87
[2018-11-19] MEDS ORDERED: TORADOL IM ONE (13:35)
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
[2018-11-19] MEDS ORDERED: NORCO 5/325 PO ONE (15:21)
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
== END 2018-11-19 16:41 | disposition home or self-care (01) ==
LOC: ED 11:59
DX: S39.012A Strain of muscle, fascia and tendon of lower back, initial encounter (principal); S09.90XA Unspecified injury of head, initial encounter; F20.9 Schizophrenia, unspecified; F43.10 Post-traumatic stress disorder, unspecified; Z90.49 Acquired absence of other specified parts of digestive tract; Z86.73 Personal history of transient ischemic attack (TIA), and cerebral infarction without residual deficits; Z87.442 Personal history of urinary calculi; Z79.899 Other long term (current) drug therapy; V09.9XXA Pedestrian injured in unspecified transport accident, initial encounter; Y93.89 Activity, other specified; Y92.488 Other paved roadways as the place of occurrence of the external cause; Y99.8 Other external cause status
CPT/HCPCS: 70450; 72100; 72125; 99284; J1885

== ENCOUNTER 2019-04-01 13:46 | Emergency (ER) | payer MEDICAID ==
[2019-04-01 14:16] VITALS: BP 155/93
--- NOTE | 2019-04-01 14:18 | Emergency Department Report ---
Blank Doc - Documentation Documentation: 33-year-old male that presents with sz. 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 This initial assessment/diagnostic orders/clinical plan/treatment(s) is/are subject to change based on patient's health status, clinical progression and re- assessment by fellow clinical providers in the ED. Further treatment and workup at subsequent clinical providers discretion. Patient/guardians urged not to elope from the ED as their condition may be serious if not clinically assessed and managed. Initial orders include: 1- Patient sent to MAIN ED for further evaluation and treatment 2- labs 3- EKG 4- CT head
[2019-04-01 14:45] LABS: Basophils % (Auto) 0.5 % (0.0-1.8); Eosinophils % (Auto) 0.5 % (0.0-4.3); Hematocrit 39.4 % (35.5-45.6); Hemoglobin 13.7 gm/dl (11.8-15.2); Lymphocytes # (Auto) 1.3 K/mm3 (1.2-5.4); Lymphocytes % (Auto) 16.8 % (13.4-35.0); Mean Corpuscular HGB Conc 35 % (32-34); Mean Corpuscular Volume 92 fl (84-94); Monocytes # (Auto) 0.6 K/mm3 (0.0-0.8); Monocytes % (Auto) 7.5 % (0.0-7.3); Platelet Count 253 K/mm3 (140-440); Red Blood Count 4.28 M/mm3 (3.65-5.03); Red Cell Distribution Width 12.4 % (13.2-15.2)
[2019-04-01 15:09] LABS: Alanine Aminotransferase 15 units/L (7-56); Albumin 4.5 g/dL (3.9-5); BUN/Creatinine Ratio 23; Blood Urea Nitrogen 16 mg/dL (9-20); Calcium 9.4 mg/dL (8.4-10.2); Hemolysis Index 14
--- NOTE | 2019-04-01 15:44 | Cat Scan Report ---
. CT HEAD WITHOUT CONTRAST INDICATION / CLINICAL INFORMATION: Seizure. TECHNIQUE: Axial imaging performed from the skull apex through the skull base without the use of cont rast. Sagittal and coronal reformatted images. All CT scans at this location are performed using CT dose reduction for ALARA by means of automated exposure control. COMPARISON: 11/19/2018 FINDINGS: CEREBRAL PARENCHYMA: No significant abnormality. No acute territorial infarct. HEMORRHAGE: None. EXTRA-AXIAL SPACES: Normal in size and morphology for the patient's age. VENTRICULAR SYSTEM: Normal in size and morphology for the patient's age. MIDLINE SHIFT OR HERNIATION: None. CEREBELLUM / BRAINSTEM: No significant abnormality. CALVARIUM: No significant abnormality. ORBITS: Normal as visualized. PARANASAL SINUSES / MASTOID AIR CELLS: Normal as visualized. SOFT TISSUES of HEAD: No significant abnormality. ADDITIONAL FINDINGS: None. IMPRESSION: No acute intracranial abnormality. Signer Name: Isac Snyder Jr, MD Signed: 04/01/2019 3:40 PM Workstation Name: [id number]
== END 2019-04-01 20:00 | disposition left against medical advice (07) ==
LOC: ED 13:46
DX: R56.9 Unspecified convulsions (principal); Z53.21 Procedure and treatment not carried out due to patient leaving prior to being seen by health care provider
CPT/HCPCS: 36415; 70450; 80053; 80320; 85025; 93005; 93010; G0480

== ENCOUNTER 2019-05-11 07:28 | Emergency (ER) | payer MEDICAID ==
[2019-05-11 07:48] VITALS: BP 145/96
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
[2019-05-11] MEDS ORDERED: HYDROcodone/ACETAMINOPHEN 5-325 MG TAB PO ONE (08:35)
== END 2019-05-11 08:56 | disposition left against medical advice (07) ==
LOC: ED 07:28
DX: G89.29 Other chronic pain (principal); F41.9 Anxiety disorder, unspecified; F43.10 Post-traumatic stress disorder, unspecified; Z76.0 Encounter for issue of repeat prescription; Z86.73 Personal history of transient ischemic attack (TIA), and cerebral infarction without residual deficits; Z87.442 Personal history of urinary calculi; Z79.899 Other long term (current) drug therapy; Z88.5 Allergy status to narcotic agent; Z88.6 Allergy status to analgesic agent
CPT/HCPCS: 99282

== ENCOUNTER 2019-06-10 19:20 | Emergency (ER) | payer MEDICAID ==
[2019-06-10 19:39] VITALS: BP 133/84
--- NOTE | 2019-06-10 19:42 | Emergency Department Report ---
Blank Doc - Documentation Documentation: 33-year-old male that presents with lower back pain s/p fall. This initial assessment/diagnostic orders/clinical plan/treatment(s) is/are subject to change based on patient's health status, clinical progression and re- assessment by fellow clinical providers in the ED. Further treatment and workup at subsequent clinical providers discretion. Patient/guardians urged not to elope from the ED as their condition may be serious if not clinically assessed and managed. Initial orders include: 1- Patient sent to [facility] for further evaluation and treatment 2- xrays
--- NOTE | 2019-06-10 20:19 | XRay Report ---
LUMBAR SPINE 2 VIEWS INDICATION / CLINICAL INFORMATION: low back pain s/p fall. COMPARISON: 11/19/2018 and 10/04/2018 lumbar spine radiograph FINDINGS: VERTEBRAE: No acute fracture. No significant malalignment. DISC SPACES / FACET JOINTS:No significant abnormality. PARASPINAL SOFT TISSUES:No significant abnormality. Signer Name: Will Chen MD Signed: 06/10/2019 8:15 PM Workstation Name: [id number]
== END 2019-06-10 22:00 | disposition left against medical advice (07) ==
LOC: ED 19:20
DX: M54.5 Low back pain (principal); Z53.21 Procedure and treatment not carried out due to patient leaving prior to being seen by health care provider
CPT/HCPCS: 72100

== ENCOUNTER 2019-10-05 14:11 | Emergency (ER) | payer MEDICAID | END 2019-10-05 17:12 | disposition left against medical advice (07) | LOC: ED 14:11 | DX: M54.9 Dorsalgia, unspecified (principal); Z53.21 Procedure and treatment not carried out due to patient leaving prior to being seen by health care provider ==

== ENCOUNTER 2019-10-06 10:03 | Emergency (ER) | payer MEDICAID ==
[2019-10-06 13:24] LABS: Bilirubin,Urine NEG (Negative); Blood,Urine NEG (Negative); Color,Urine Yellow (Yellow); Mucus,Urine 3+ /HPF; Protein,Urine <15 mg/dL mg/dL (Negative); Urobilinogen,Urine < 2.0 mg/dL (<2.0); WBC,Urine < 1.0 /HPF (0.0-6.0)
== END 2019-10-06 12:30 | disposition left against medical advice (07) ==
LOC: ED 10:03
DX: N20.0 Calculus of kidney (principal); Z53.21 Procedure and treatment not carried out due to patient leaving prior to being seen by health care provider
CPT/HCPCS: 81001

== ENCOUNTER 2019-10-22 13:38 | Emergency (ER) | payer MEDICAID ==
[2019-10-22 13:52] VITALS: BP 117/87
--- NOTE | 2019-10-22 14:35 | Emergency Department Report ---
Chief Complaint: Back Pain/Injury Stated Complaint: BACK PAIN Time Seen by Provider: 10/22/19 14:30 - HPI History of Present Illness: Patient is a 34-year-old male presents emergency room with complaints of right lower back pain that began 3 days ago. He denies any fall or injury. He denies any nausea, vomiting, diarrhea, fever, numbness, weakness, bowel or bladder incontinence, urinary symptoms. He has a past medical history of chronic back pain since 2016. He had normal lumbar x-rays performed on 06/10/2019, 11/29/2018, 10/04/2018. Patient was also seen in the emergency department on 10/07 2019 for back pain and received tramadol at that time. He has not followed up with a primary care doctor or an orthopedic. He has a past medical history of depression, anxiety, schizophrenia. He denies any SI, HI, hallucinations. He states he is taking his medications for his psych history. initial vitals with tachycardia, improved on repeat repeat with HR 101, oxygen saturation is 98% on RA On exam: Non toxic appearing, no acute distress atraumatic, normocephalic normal appearance of the eyes, PERRL, EOMI, no periorbital edema or ecchymosis moist mucus membranes regular heart rate and rhythm, no gallops, no rubs, no murmurs breath sounds are clear bilaterally, no w/r/r Mild right-sided paraspinal lumbar tenderness palpation, no midline C-spine, T- spine, L-spine tenderness palpation, no step-offs, no deformities A&O x4, no focal neuro deficit, 5 out of 5 muscle strength in the bilateral upper extremities and lower extremities, sensation intact throughout, normal gait skin is warm, dry, intact Patient has no red flag warning signs of back pain No trauma, no unexplained weight loss, no neuro deficits, age is not greater than 50, no IV drug use, no fever, no steroid use, no history of cancer He is presenting with chronic back pain which he has had since 2016 He was recently prescribed tramadol last week He has had multiple x-rays which were all normal Patient will be referred to primary care physician pt will be referred to orthopedic Discussed strict return precautions Medical screening exam performed and there is no threat to life or limb at this time - Exam Vital Signs: Vital Signs 10/22/19 13:51 Temperature 98.0 F Pulse Rate 111 H Respiratory 16 Rate Blood Pressure 117/87 O2 Sat by Pulse 96 Oximetry MSE screening note: Focused history and physical exam performed. ED Disposition for MSE Clinical Impression: Chronic back pain Qualifiers: Back pain location: low back pain Back pain laterality: right Sciatica presence: without sciatica Qualified Code(s): M54.5 - Low back pain Disposition: MED SCREENING EXAM-LEFT Is pt being admited?: No Does the pt Need Aspirin: No Condition: Stable Instructions: Chronic Back Pain (ED) Additional Instructions: May alternate Tylenol or ibuprofen as needed for discomfort. May use ice pack, heating pad, rest, Epson salt bath. Follow-up with a primary care doctor. Follow-up with an orthopedic doctor. Return to emergency room for any new or worsening symptoms. Referrals: RADHA SOLER MD [Staff Physician] - 3-5 Days [facility] [Provider Group] - 3-5 Days BAILEE ANNE DO [Staff Physician] - 3-5 Days ZOEY CANO MD [Staff Physician] - 3-5 Days [facility] [Provider Group] - 3-5 Days Time of Disposition: 14:34 Print Language: ARMENIAN
== END 2019-10-22 14:45 | disposition left against medical advice (07) ==
LOC: ED 13:38
DX: G89.29 Other chronic pain (principal); M54.5 Low back pain; Z53.21 Procedure and treatment not carried out due to patient leaving prior to being seen by health care provider

== ENCOUNTER 2019-12-15 16:53 | Emergency (ER) | payer MEDICAID ==
[2019-12-15 16:58] VITALS: BP 122/85
[2019-12-15] MEDS ORDERED: ACETAMINOPHEN W/CODEINE 300-30 MG TAB PO ONE (18:25)
--- NOTE | 2019-12-15 18:30 | Emergency Department Report ---
ED General Adult HPI - General Chief complaint: Skin/Abscess/Foreign Body Stated complaint: CHEST PAIN/NIPPLE DISCHARGE Time Seen by Provider: 12/15/19 18:12 Source: patient Mode of arrival: Ambulatory Limitations: No Limitations - History of Present Illness Initial comments: Patient is a 34-year-old male presents emergency room with complaints of right chest wall pain and right breast pain that began a week ago. He states that occasionally he has noticed some nipple discharge. He denies any fever, vomiting, chills, diarrhea, any other symptoms. He states he has a history of depression and was recently changed to Wellbutrin a month ago. He denies any other past medical history. He has an allergy to Toradol and NSAIDs. - Related Data Home Medications Medication Instructions Recorded Confirmed Last Taken LORazepam [Ativan] 1 mg PO BID PRN 01/15/15 04/20/16 01/15/15 FLUoxetine [PROzac] 10 mg PO QDAY 01/27/16 04/20/16 Unknown risperiDONE [RisperiDONE] 1 mg PO QDAY 01/27/16 04/20/16 Unknown Previous Rx's Medication Instructions Recorded Last Taken Type Cyclobenzaprine [Flexeril 10 MG 10 mg PO TID PRN #15 tablet 01/27/16 Unknown Rx TAB] Docusate Sodium [Colace] 100 mg PO BID PRN #20 capsule 07/11/16 Unknown Rx HYDROcodone/APAP 5-325 [[place] 1 each PO Q6HR PRN #15 tablet 07/11/16 Unknown Rx 5-325 mg TAB] Ondansetron [Zofran Odt] 4 mg PO Q8HR PRN #20 tab.rapdis 07/11/16 Unknown Rx Cyclobenzaprine [Flexeril] 10 mg PO QHS PRN #10 tablet 10/04/18 Unknown Rx Naproxen [Naprosyn TAB] 500 mg PO BID PRN #20 tablet 10/04/18 Unknown Rx Ibuprofen [Motrin 600 MG tab] 600 mg PO Q8H PRN #20 tablet 11/19/18 Unknown Rx methOCARBAMOL [Robaxin TAB] 500 mg PO Q6H PRN #14 tablet 11/19/18 Unknown Rx traMADoL [Ultram] 50 mg PO Q6HR PRN #12 tablet 11/19/18 Unknown Rx traMADoL [Ultram 50 MG tab] 50 mg PO Q6HR PRN #20 tablet 10/07/19 Unknown Rx Acetaminophen [Acetaminophen TAB] 1 - 2 tab PO Q6HR PRN #24 tablet 11/02/19 Unknown Rx Acetaminophen [Tylenol] 650 mg PO Q8HR PRN #14 capsule 12/15/19 Unknown Rx Allergies Allergy/AdvReac Type Severity Reaction Status Date / Time ketorolac [From Toradol] Allergy Diarrhea Verified 10/22/19 13:49 NSAIDS (Non-Steroidal Allergy Diarrhea Verified 10/22/19 13:49 Anti-Inflamma ED Review of Systems ROS: Stated complaint: CHEST PAIN/NIPPLE DISCHARGE Other details as noted in HPI Comment: All other systems reviewed and negative ED Past Medical Hx - Past Medical History Previous Medical History?: Yes Hx CVA: Yes (?TIA) Hx Renal Disease: Yes (hx kidney stones) Hx Kidney Stones: Yes Hx Psychiatric Treatment: Yes (PTSD, ANXIETY,depression/ schizophrenia) Additional medical history: SPINAL STENOSIS, 4 BULGING DISKS - Surgical History Past Surgical History?: Yes Hx Appendectomy: Yes Additional Surgical History: Right inguinal hernia repair for the second time in 2009, left inguinal hernia repair in 2009. tonsillectomy - Social History Smoking Status: Never Smoker Substance Use Type: None - Medications Home Medications: Home Medications Medication Instructions Recorded Confirmed Last Taken Type LORazepam [Ativan] 1 mg PO BID PRN 01/15/15 04/20/16 01/15/15 History Cyclobenzaprine [Flexeril 10 MG 10 mg PO TID PRN #15 tablet 01/27/16 04/20/16 Unknown Rx TAB] FLUoxetine [PROzac] 10 mg PO QDAY 01/27/16 04/20/16 Unknown History risperiDONE [RisperiDONE] 1 mg PO QDAY 01/27/16 04/20/16 Unknown History Docusate Sodium [Colace] 100 mg PO BID PRN #20 capsule 07/11/16 Unknown Rx HYDROcodone/APAP 5-325 [[place] 1 each PO Q6HR PRN #15 tablet 07/11/16 Unknown Rx 5-325 mg TAB] Ondansetron [Zofran Odt] 4 mg PO Q8HR PRN #20 tab.rapdis 07/11/16 Unknown Rx Cyclobenzaprine [Flexeril] 10 mg PO QHS PRN #10 tablet 10/04/18 Unknown Rx Naproxen [Naprosyn TAB] 500 mg PO BID PRN #20 tablet 10/04/18 Unknown Rx Ibuprofen [Motrin 600 MG tab] 600 mg PO Q8H PRN #20 tablet 11/19/18 Unknown Rx methOCARBAMOL [Robaxin TAB] 500 mg PO Q6H PRN #14 tablet 11/19/18 Unknown Rx traMADoL [Ultram] 50 mg PO Q6HR PRN #12 tablet 11/19/18 Unknown Rx traMADoL [Ultram 50 MG tab] 50 mg PO Q6HR PRN #20 tablet 10/07/19 Unknown Rx Acetaminophen [Acetaminophen TAB] 1 - 2 tab PO Q6HR PRN #24 tablet 11/02/19 Unknown Rx Acetaminophen [Tylenol] 650 mg PO Q8HR PRN #14 capsule 12/15/19 Unknown Rx ED Physical Exam - General Limitations: No Limitations General appearance: alert, in no apparent distress - Head Head exam: Present: atraumatic, normocephalic - Eye Eye exam: Present: normal appearance - ENT ENT exam: Present: mucous membranes moist - Respiratory Respiratory exam: Present: normal lung sounds bilaterally, chest wall tenderness (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 Absent: respiratory distress, wheezes, rales, rhonchi, stridor, accessory muscle use, decreased breath sounds, prolonged expiratory - Cardiovascular Cardiovascular Exam: Present: regular rate, normal rhythm, normal heart sounds. Absent: systolic murmur, diastolic murmur, rubs, gallop - Neurological Exam Neurological exam: Present: alert, oriented X3 - Psychiatric Psychiatric exam: Present: normal affect, normal mood - Skin Skin exam: Present: warm, dry, intact ED Course Vital Signs 12/15/19 16:58 Temperature 98 F Pulse Rate 104 H Respiratory 16 Rate Blood Pressure 122/85 [Right] O2 Sat by Pulse 98 Oximetry ED Medical Decision Making - Medical Decision Making Patient is a 34-year-old male presents emergency room with complaints of right chest wall pain and right breast pain that began a week ago. He states that occasionally he has noticed some nipple discharge. He denies any fever, vomiting, chills, diarrhea, any other symptoms. He states he has a history of depression and was recently changed to Wellbutrin a month ago. He denies any other past medical history. He has an allergy to Toradol and NSAIDs. VSS. 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 No obvious signs of mass, abscess, or gynecomastia. Patient will be referred to his primary care physician for further evaluation. Patient given prescription for Tylenol. Advised patient to please take medication as prescribed as needed. May use ice pack, heating pad, rest. Follow-up with your primary care doctor and discuss your symptoms. Return to emergency room for any new or worsening symptoms. Critical care attestation.: If time is entered above; I have spent that time in minutes in the direct care of this critically ill patient, excluding procedure time. ED Disposition Clinical Impression: Chest wall pain, Breast pain in male, Nipple discharge in male Disposition: - TO HOME OR SELFCARE Is pt being admited?: No Does the pt Need Aspirin: No Condition: Stable Instructions: Costochondritis (ED) Additional Instructions: please take medication as prescribed as needed. May use ice pack, heating pad, rest. Follow-up with your primary care doctor and discuss your symptoms. Return to emergency room for any new or worsening symptoms. Prescriptions: Acetaminophen [Tylenol] 650 mg PO Q8HR PRN #14 capsule PRN Reason: pain Referrals: MIKEL EASON MD [Primary Care Provider] - 2-3 Days RADHA SOLER MD [Staff Physician] - 2-3 Days [facility] [Provider Group] - 2-3 Days JUNE WINSTON MD [Staff Physician] - 2-3 Days Time of Disposition: 18:30 Print Language: GREEK
== END 2019-12-15 18:37 | disposition home or self-care (01) ==
LOC: ED 16:53
DX: R07.89 Other chest pain (principal); N64.4 Mastodynia; N64.52 Nipple discharge; F20.9 Schizophrenia, unspecified; F41.9 Anxiety disorder, unspecified; Z86.73 Personal history of transient ischemic attack (TIA), and cerebral infarction without residual deficits; Z87.442 Personal history of urinary calculi; Z90.49 Acquired absence of other specified parts of digestive tract; Z98.890 Other specified postprocedural states; Z90.89 Acquired absence of other organs; Z79.1 Long term (current) use of non-steroidal anti-inflammatories (NSAID); Z79.899 Other long term (current) drug therapy; Z88.6 Allergy status to analgesic agent; Z88.8 Allergy status to other drugs, medicaments and biological substances
CPT/HCPCS: 99282

== ENCOUNTER 2020-01-23 20:44 | Emergency (ER) | payer MEDICAID ==
[2020-01-23 23:01] VITALS: BP 121/79
--- NOTE | 2020-01-23 23:18 | Emergency Department Report ---
ED Back Pain/Injury HPI - General Chief Complaint: Neuro Symptoms/Deficit Stated Complaint: BACK PAIN X 3DAYS Time Seen by Provider: 01/23/20 23:07 Source: patient Limitations: No Limitations - History of Present Illness Initial Comments: CC: bowel and bladder incontinence HPI: Mr. Abarca is a 34 yo male with hx of kidney stones, schizophrenia, spinal stenosis, lumbar DDD, vertebral fracture who presents with back pain bowel bladder incontinence. For several days he noticed urinary dribbling. He stated that he also was incontinent one time of hard stool. He has been formally followed by pain management. He stopped pain management treatment. He is starting a new job and is concerned for pain control while employed. He denies leg weakness. He denies difficulty with ambulation. MRI lumbar spine 2016 revealede mild degenerative changes in lumbar spine MD Complaint: back pain Similar Symptoms Previously: Yes Place: home Radiation: none Severity: moderate Quality: dull, aching Consistency: constant Improves With: none Worsens With: none Associated Symptoms: incontinence - Related Data Home Medications Medication Instructions Recorded Confirmed Last Taken LORazepam [Ativan] 1 mg PO BID PRN 01/15/15 04/20/16 01/15/15 FLUoxetine [PROzac] 10 mg PO QDAY 01/27/16 04/20/16 Unknown risperiDONE [RisperiDONE] 1 mg PO QDAY 01/27/16 04/20/16 Unknown Previous Rx's Medication Instructions Recorded Last Taken Type Cyclobenzaprine [Flexeril 10 MG 10 mg PO TID PRN #15 tablet 01/27/16 Unknown Rx TAB] Docusate Sodium [Colace] 100 mg PO BID PRN #20 capsule 07/11/16 Unknown Rx HYDROcodone/APAP 5-325 [[place] 1 each PO Q6HR PRN #15 tablet 07/11/16 Unknown Rx 5-325 mg TAB] Ondansetron [Zofran Odt] 4 mg PO Q8HR PRN #20 tab.rapdis 07/11/16 Unknown Rx Cyclobenzaprine [Flexeril] 10 mg PO QHS PRN #10 tablet 10/04/18 Unknown Rx Naproxen [Naprosyn TAB] 500 mg PO BID PRN #20 tablet 10/04/18 Unknown Rx Ibuprofen [Motrin 600 MG tab] 600 mg PO Q8H PRN #20 tablet 11/19/18 Unknown Rx methOCARBAMOL [Robaxin TAB] 500 mg PO Q6H PRN #14 tablet 11/19/18 Unknown Rx traMADoL [Ultram] 50 mg PO Q6HR PRN #12 tablet 11/19/18 Unknown Rx traMADoL [Ultram 50 MG tab] 50 mg PO Q6HR PRN #20 tablet 10/07/19 Unknown Rx Acetaminophen [Acetaminophen TAB] 1 - 2 tab PO Q6HR PRN #24 tablet 11/02/19 Unknown Rx Acetaminophen [Tylenol] 650 mg PO Q8HR PRN #14 capsule 12/15/19 Unknown Rx Allergies Allergy/AdvReac Type Severity Reaction Status Date / Time ketorolac [From Toradol] Allergy Diarrhea Verified 10/22/19 13:49 NSAIDS (Non-Steroidal Allergy Diarrhea Verified 10/22/19 13:49 Anti-Inflamma ED Review of Systems ROS: Stated complaint: BACK PAIN X 3DAYS Other details as noted in HPI Comment: All other systems reviewed and negative Constitutional: denies: fever, malaise Respiratory: denies: cough, shortness of breath Gastrointestinal: denies: abdominal pain, nausea, vomiting ED Past Medical Hx - Past Medical History Previous Medical History?: Yes Hx CVA: Yes (?TIA) Hx Renal Disease: Yes (hx kidney stones) Hx Kidney Stones: Yes Hx Psychiatric Treatment: Yes (PTSD, ANXIETY,depression/ schizophrenia) Additional medical history: SPINAL STENOSIS, 4 BULGING DISKS LOWER BACK,. Fractured spine - Surgical History Past Surgical History?: Yes Hx Appendectomy: Yes Additional Surgical History: Right inguinal hernia repair for the second time in 2009, left inguinal hernia repair in 2009. tonsillectomy - Social History Smoking Status: Never Smoker Substance Use Type: None - Medications Home Medications: Home Medications Medication Instructions Recorded Confirmed Last Taken Type LORazepam [Ativan] 1 mg PO BID PRN 01/15/15 04/20/16 01/15/15 History Cyclobenzaprine [Flexeril 10 MG 10 mg PO TID PRN #15 tablet 01/27/16 04/20/16 Unknown Rx TAB] FLUoxetine [PROzac] 10 mg PO QDAY 01/27/16 04/20/16 Unknown History risperiDONE [RisperiDONE] 1 mg PO QDAY 01/27/16 04/20/16 Unknown History Docusate Sodium [Colace] 100 mg PO BID PRN #20 capsule 07/11/16 Unknown Rx HYDROcodone/APAP 5-325 [[place] 1 each PO Q6HR PRN #15 tablet 07/11/16 Unknown Rx 5-325 mg TAB] Ondansetron [Zofran Odt] 4 mg PO Q8HR PRN #20 tab.rapdis 07/11/16 Unknown Rx Cyclobenzaprine [Flexeril] 10 mg PO QHS PRN #10 tablet 10/04/18 Unknown Rx Naproxen [Naprosyn TAB] 500 mg PO BID PRN #20 tablet 10/04/18 Unknown Rx Ibuprofen [Motrin 600 MG tab] 600 mg PO Q8H PRN #20 tablet 11/19/18 Unknown Rx methOCARBAMOL [Robaxin TAB] 500 mg PO Q6H PRN #14 tablet 11/19/18 Unknown Rx traMADoL [Ultram] 50 mg PO Q6HR PRN #12 tablet 11/19/18 Unknown Rx traMADoL [Ultram 50 MG tab] 50 mg PO Q6HR PRN #20 tablet 10/07/19 Unknown Rx Acetaminophen [Acetaminophen TAB] 1 - 2 tab PO Q6HR PRN #24 tablet 11/02/19 Unknown Rx Acetaminophen [Tylenol] 650 mg PO Q8HR PRN #14 capsule 12/15/19 Unknown Rx ED Physical Exam - General Limitations: No Limitations General appearance: alert, in no apparent distress - Head Head exam: Present: atraumatic, normocephalic - Eye Eye exam: Present: normal appearance - ENT ENT exam: Present: mucous membranes moist - Neck Neck exam: Present: normal inspection, full ROM - Respiratory Respiratory exam: Present: normal lung sounds bilaterally. Absent: respiratory distress, wheezes, rales, rhonchi - Cardiovascular Cardiovascular Exam: Present: regular rate, normal rhythm, normal heart sounds. Absent: systolic murmur, diastolic murmur, rubs, gallop - GI/Abdominal GI/Abdominal exam: Present: soft, normal bowel sounds. Absent: distended, tenderness, rebound - Rectal Rectal exam: Present: normal rectal tone, other (Intact saddle sensation) - Extremities Exam Extremities exam: Present: normal inspection - Neurological Exam Neurological exam: Present: alert, oriented X3 - Psychiatric Psychiatric exam: Present: normal affect, normal mood - Skin Skin exam: Present: warm, dry, intact, normal color. Absent: rash ED Course Vital Signs 01/23/20 01/23/20 21:29 22:58 Temperature 97.6 F Pulse Rate 97 H 68 Respiratory 18 18 Rate Blood Pressure 127/79 Blood Pressure 121/79 [Left] O2 Sat by Pulse 95 99 Oximetry ED Medical Decision Making - Medical Decision Making Ms. nair is a 34-year-old male with history of schizophrenia, lumbar degenerative disc disease mild. he reports stool and bladder incontinence. He has intact rectal tone. Intact saddle sensation. No leg weakness. No observed incontinence while observed in the emergency department. I do not suspect spinal cord compression or cauda equina syndrome. Patient appears comfortable. He understands to follow-up with spine surgeons to whom he was referred. With previous MRI findings in 2016 I do not suspect that patient will be at imminent risk for neurological compromise. Patient understands return precautions. He is discharged home. Critical care attestation.: If time is entered above; I have spent that time in minutes in the direct care of this critically ill patient, excluding procedure time. ED Disposition Clinical Impression: Back pain Disposition: DC-01 TO HOME OR SELFCARE Is pt being admited?: No Does the pt Need Aspirin: No Condition: Stable Instructions: Acute Back Pain, Adult Referrals: ZOHREH GARZA II, MD [Staff Physician] - 3-5 Days
[2020-01-23] MEDS ORDERED: oxyCODONE /ACETAMINOPHEN 5-325MG TAB PO ONE (23:20)
== END 2020-01-23 23:42 | disposition home or self-care (01) ==
LOC: ED 20:44
DX: M54.6 Pain in thoracic spine (principal); F41.9 Anxiety disorder, unspecified; F20.9 Schizophrenia, unspecified; Z90.49 Acquired absence of other specified parts of digestive tract; Z90.89 Acquired absence of other organs; Z98.890 Other specified postprocedural states; Z79.1 Long term (current) use of non-steroidal anti-inflammatories (NSAID); Z79.899 Other long term (current) drug therapy; Z88.8 Allergy status to other drugs, medicaments and biological substances

== ENCOUNTER 2020-03-12 17:19 | Emergency (ER) | payer MEDICAID ==
[2020-03-12 17:25] VITALS: BP 144/100
--- NOTE | 2020-03-12 17:56 | Event Note ---
ED Screening Note Date of service: 03/12/20 Time: 17:54 ED Screening Note: 34-year-old male presents to the emergency room for lower back pain that shoots down his right leg status post fall on his kids toy today. Patient states that he took Tylenol and ibuprofen without much relief. Patient does suffer from chronic pain. Patient is prescribed Suboxone. This initial assessment/diagnostic orders/clinical plan/treatment(s) is/are subject to change based on patients health status, clinical progression and re- assessment by fellow clinical providers in the ED. Further treatment and workup at subsequent clinical providers discretion. Patient/guardian urged not to elope from the ED as their condition may be serious if not clinically assessed and managed. Initial orders include:
--- NOTE | 2020-03-12 18:26 | XRay Report ---
LUMBOSACRAL SPINE 3 VIEWS INDICATION / CLINICAL INFORMATION: Fall with low back pain. COMPARISON: 06/10/19. FINDINGS: BONES / JOINT(S): There is a transitional lumbosacral segment. The vertebral body heights and disc sp aces are well-maintained. The pedicles are intact and the SI joints are normal. There is no evidence of fracture or subluxation. SOFT TISSUES: There is a prior right inguinal hernia repair. ADDITIONAL FINDINGS: None. Signer Name: Alejandro Shook MD Signed: 03/12/2020 6:21 PM Workstation Name: [id number]
--- NOTE | 2020-03-12 18:34 | Emergency Department Report ---
ED Back Pain/Injury HPI - General Chief Complaint: Fall Stated Complaint: BACK PAIN Source: patient Limitations: No Limitations - History of Present Illness Initial Comments: 34-year-old male presents to the emergency room for acute on chronic back pain. Patient states that he had fallen while stepping on one of his children's toys. Patient states that the pain is not like his usual pain. Patient states he had tried Tylenol and ibuprofen with no relief. Patient is currently on Suboxone. MD Complaint: back injury, fall -: This morning Similar Symptoms Previously: Yes Place: home Radiation: right leg Severity: moderate Quality: burning, sharp, stabbing Consistency: constant Improves With: none Worsens With: movement Context: trauma Associated Symptoms: denies other symptoms Treatments Prior to Arrival: NSAIDS, acetaminophen - Related Data Home Medications Medication Instructions Recorded Confirmed Last Taken LORazepam [Ativan] 1 mg PO BID PRN 01/15/15 04/20/16 01/15/15 FLUoxetine [PROzac] 10 mg PO QDAY 01/27/16 04/20/16 Unknown risperiDONE [RisperiDONE] 1 mg PO QDAY 01/27/16 04/20/16 Unknown Previous Rx's Medication Instructions Recorded Last Taken Type Cyclobenzaprine [Flexeril 10 MG 10 mg PO TID PRN #15 tablet 01/27/16 Unknown Rx TAB] Docusate Sodium [Colace] 100 mg PO BID PRN #20 capsule 07/11/16 Unknown Rx HYDROcodone/APAP 5-325 [[place] 1 each PO Q6HR PRN #15 tablet 07/11/16 Unknown Rx 5-325 mg TAB] Ondansetron [Zofran Odt] 4 mg PO Q8HR PRN #20 tab.rapdis 07/11/16 Unknown Rx Cyclobenzaprine [Flexeril] 10 mg PO QHS PRN #10 tablet 10/04/18 Unknown Rx Naproxen [Naprosyn TAB] 500 mg PO BID PRN #20 tablet 10/04/18 Unknown Rx Ibuprofen [Motrin 600 MG tab] 600 mg PO Q8H PRN #20 tablet 11/19/18 Unknown Rx methOCARBAMOL [Robaxin TAB] 500 mg PO Q6H PRN #14 tablet 11/19/18 Unknown Rx traMADoL [Ultram] 50 mg PO Q6HR PRN #12 tablet 09/05/19 Unknown Rx traMADoL [Ultram 50 MG tab] 50 mg PO Q6HR PRN #20 tablet 10/07/19 Unknown Rx Acetaminophen [Acetaminophen TAB] 1 - 2 tab PO Q6HR PRN #24 tablet 11/02/19 Unknown Rx Acetaminophen [Tylenol] 650 mg PO Q8HR PRN #14 capsule 12/15/19 Unknown Rx Allergies Allergy/AdvReac Type Severity Reaction Status Date / Time ketorolac [From Toradol] Allergy Diarrhea Verified 10/22/19 13:49 NSAIDS (Non-Steroidal Allergy Diarrhea Verified 10/22/19 13:49 Anti-Inflamma ED Review of Systems ROS: Stated complaint: BACK PAIN Other details as noted in HPI Comment: All other systems reviewed and negative ED Past Medical Hx - Past Medical History Hx CVA: Yes (?TIA) Hx Renal Disease: Yes (hx kidney stones) Hx Kidney Stones: Yes Hx Psychiatric Treatment: Yes (PTSD, ANXIETY,depression/ schizophrenia) Additional medical history: SPINAL STENOSIS, 4 BULGING DISKS LOWER BACK,. Fractured spine - Surgical History Hx Appendectomy: Yes Additional Surgical History: Right inguinal hernia repair for the second time in 2009, left inguinal hernia repair in 2009. tonsillectomy - Social History Smoking Status: Never Smoker Substance Use Type: None - Medications Home Medications: Home Medications Medication Instructions Recorded Confirmed Last Taken Type LORazepam [Ativan] 1 mg PO BID PRN 01/15/15 04/20/16 01/15/15 History Cyclobenzaprine [Flexeril 10 MG 10 mg PO TID PRN #15 tablet 01/27/16 04/20/16 Unknown Rx TAB] FLUoxetine [PROzac] 10 mg PO QDAY 01/27/16 04/20/16 Unknown History risperiDONE [RisperiDONE] 1 mg PO QDAY 01/27/16 04/20/16 Unknown History Docusate Sodium [Colace] 100 mg PO BID PRN #20 capsule 07/11/16 Unknown Rx HYDROcodone/APAP 5-325 [[place] 1 each PO Q6HR PRN #15 tablet 07/11/16 Unknown Rx 5-325 mg TAB] Ondansetron [Zofran Odt] 4 mg PO Q8HR PRN #20 tab.rapdis 07/11/16 Unknown Rx Cyclobenzaprine [Flexeril] 10 mg PO QHS PRN #10 tablet 10/04/18 Unknown Rx Naproxen [Naprosyn TAB] 500 mg PO BID PRN #20 tablet 10/04/18 Unknown Rx Ibuprofen [Motrin 600 MG tab] 600 mg PO Q8H PRN #20 tablet 11/19/18 Unknown Rx methOCARBAMOL [Robaxin TAB] 500 mg PO Q6H PRN #14 tablet 11/19/18 Unknown Rx traMADoL [Ultram] 50 mg PO Q6HR PRN #12 tablet 11/19/18 Unknown Rx traMADoL [Ultram 50 MG tab] 50 mg PO Q6HR PRN #20 tablet 10/07/19 Unknown Rx Acetaminophen [Acetaminophen TAB] 1 - 2 tab PO Q6HR PRN #24 tablet 11/02/19 Unknown Rx Acetaminophen [Tylenol] 650 mg PO Q8HR PRN #14 capsule 12/15/19 Unknown Rx ED Physical Exam - General Limitations: No Limitations ED Course Vital Signs 03/12/20 17:22 Temperature 97.5 F L Pulse Rate 104 H Respiratory 16 Rate Blood Pressure 144/100 [Left] O2 Sat by Pulse 100 Oximetry ED Medical Decision Making - Radiology Data Radiology results: report reviewed [address] [address] XRay Report Signed Patient: KEMAL KAYE MR#: [id number] : 1985 Acct:[id number] Age/Sex: 34 / M ADM Date: 03/12/20 Loc: ED Attending Dr: Ordering Physician: FREDY GARAY Date of Service: 03/12/20 Procedure(s): XR spine lumbosacral 2-3V Accession Number(s): [id number] cc: FREDY GARAY Fluoro Time In Minutes: LUMBOSACRAL SPINE 3 VIEWS INDICATION / CLINICAL INFORMATION: Fall with low back pain. COMPARISON: 06/10/19. FINDINGS: BONES / JOINT(S): There is a transitional lumbosacral segment. The vertebral body heights and disc spaces are well-maintained. The pedicles are intact and the SI joints are normal. There is no evidence of fracture or subluxation. SOFT TISSUES: There is a prior right inguinal hernia repair. ADDITIONAL FINDINGS: None. Signer Name: Alejandro Shook MD Signed: 03/12/2020 6:21 PM Workstation Name: [id number] Transcribed By: RT Dictated By: Alejandro Shook MD Electronically Authenticated By: Alejandro Shook MD Signed Date/Time: 03/12/201820 DD/ 19 TD/TT: - Medical Decision Making 34-year-old male presents to the emergency room for acute on chronic back pain. Patient states that he had fallen while stepping on one of his children's toys. Patient states that the pain is not like his usual pain. Neyda ent states he had tried Tylenol and ibuprofen with no relief. Patient is currently on Suboxone. Critical care attestation.: If time is entered above; I have spent that time in minutes in the direct care of this critically ill patient, excluding procedure time. ED Disposition Clinical Impression: Back pain, Fall Disposition: DC-01 TO HOME OR SELFCARE Is pt being admited?: No Does the pt Need Aspirin: No Condition: Stable Instructions: Back Injury Prevention, [id number] Additional Instructions: X-rays are negative for any acute findings. I recommend you continue with your pain medication from your pain specialist. Recommend for you to follow-up with your pain specialist. Referrals: Your, pain specialist. [Other] - 3-5 Days
== END 2020-03-13 02:14 | disposition home or self-care (01) ==
LOC: ED 17:19
DX: M54.6 Pain in thoracic spine (principal); G89.29 Other chronic pain; F41.9 Anxiety disorder, unspecified; F32.9 Major depressive disorder, single episode, unspecified; F20.9 Schizophrenia, unspecified; Z86.73 Personal history of transient ischemic attack (TIA), and cerebral infarction without residual deficits; Z98.890 Other specified postprocedural states; Z90.89 Acquired absence of other organs; Z88.8 Allergy status to other drugs, medicaments and biological substances; W19.XXXA Unspecified fall, initial encounter; Y93.89 Activity, other specified; Y92.89 Other specified places as the place of occurrence of the external cause; Y99.8 Other external cause status
CPT/HCPCS: 72100

== ENCOUNTER 2020-07-16 20:06 | Emergency (ER) | payer MEDICAID ==
[2020-07-16 20:50] VITALS: BP 124/89
--- NOTE | 2020-07-16 21:17 | XRay Report ---
Right ankle 3 views INDICATION: Pain FINDINGS: Alignment appears normal. No acute fracture or dislocation is seen. Mild diffuse swelling. Signer Name: Ran Powers MD Signed: 07/16/2020 9:13 PM Workstation Name: [id number]
--- NOTE | 2020-07-16 21:56 | Emergency Department Report ---
ED General Adult HPI - General Chief complaint: Extremity Injury, Lower Stated complaint: ANKLE INJURY/SWELLING/NUMBNESS Time Seen by Provider: 07/16/20 21:48 Source: patient Mode of arrival: Ambulatory Limitations: No Limitations - History of Present Illness Initial comments: 34-year-old male patient presents emergency department with complaints of trau matic right ankle pain starting 2 days ago. 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 There was no resulting head injury or loss of consciousness. Patient has continued to bear weight since the injury occurred. No history of prior injuries to the right foot/right ankle. Denies hip pain, knee pain, foot pain, numbness, skin color changes. Denies all other complaints at this time. - Related Data Home Medications Medication Instructions Recorded Confirmed Last Taken LORazepam [Ativan] 1 mg PO BID PRN 01/15/15 04/20/16 01/15/15 FLUoxetine [PROzac] 10 mg PO QDAY 01/27/16 04/20/16 Unknown risperiDONE [RisperiDONE] 1 mg PO QDAY 01/27/16 04/20/16 Unknown Previous Rx's Medication Instructions Recorded Last Taken Type Cyclobenzaprine [Flexeril 10 MG 10 mg PO TID PRN #15 tablet 01/27/16 Unknown Rx TAB] Docusate Sodium [Colace] 100 mg PO BID PRN #20 capsule 07/11/16 Unknown Rx HYDROcodone/APAP 5-325 [[place] 1 each PO Q6HR PRN #15 tablet 07/11/16 Unknown Rx 5-325 mg TAB] Ondansetron [Zofran Odt] 4 mg PO Q8HR PRN #20 tab.rapdis 07/11/16 Unknown Rx Cyclobenzaprine [Flexeril] 10 mg PO QHS PRN #10 tablet 10/04/18 Unknown Rx Naproxen [Naprosyn TAB] 500 mg PO BID PRN #20 tablet 10/04/18 Unknown Rx Ibuprofen [Motrin 600 MG tab] 600 mg PO Q8H PRN #20 tablet 11/19/18 Unknown Rx methOCARBAMOL [Robaxin TAB] 500 mg PO Q6H PRN #14 tablet 11/19/18 Unknown Rx traMADoL [Ultram] 50 mg PO Q6HR PRN #12 tablet 11/19/18 Unknown Rx traMADoL [Ultram 50 MG tab] 50 mg PO Q6HR PRN #20 tablet 10/07/19 Unknown Rx Acetaminophen [Acetaminophen TAB] 1 - 2 tab PO Q6HR PRN #24 tablet 11/02/19 Unknown Rx Acetaminophen [Tylenol] 650 mg PO Q8HR PRN #14 capsule 12/15/19 Unknown Rx Allergies Allergy/AdvReac Type Severity Reaction Status Date / Time ketorolac [From Toradol] Allergy Diarrhea Verified 10/22/19 13:49 NSAIDS (Non-Steroidal Allergy Diarrhea Verified 10/22/19 13:49 Anti-Inflamma ED Review of Systems ROS: Stated complaint: ANKLE INJURY/SWELLING/NUMBNESS Other details as noted in HPI Other: CARDIOVASCULAR: Negative for chest pain. PULMONARY: Negative for dyspnea. GASTROINTESTINAL: Negative for abdominal pain. MUSCULOSKELETAL: Positive for right ankle pain NEUROLOGICAL: Negative for headache. INTEGUMENTARY: Negative for ecchymosis. ED Past Medical Hx - Past Medical History Previous Medical History?: Yes Hx CVA: Yes (?TIA) Hx Renal Disease: Yes (hx kidney stones) Hx Kidney Stones: Yes Hx Psychiatric Treatment: Yes (PTSD, ANXIETY,depression/ schizophrenia) Additional medical history: SPINAL STENOSIS, 4 BULGING DISKS LOWER BACK,. Fractured spine - Surgical History Past Surgical History?: Yes Hx Appendectomy: Yes Additional Surgical History: Right inguinal hernia repair for the second time in 2009, left inguinal hernia repair in 2009. tonsillectomy - Social History Smoking Status: Never Smoker Substance Use Type: None - Medications Home Medications: Home Medications Medication Instructions Recorded Confirmed Last Taken Type LORazepam [Ativan] 1 mg PO BID PRN 01/15/15 04/20/16 01/15/15 History Cyclobenzaprine [Flexeril 10 MG 10 mg PO TID PRN #15 tablet 01/27/16 04/20/16 Unknown Rx TAB] FLUoxetine [PROzac] 10 mg PO QDAY 01/27/16 04/20/16 Unknown History risperiDONE [RisperiDONE] 1 mg PO QDAY 01/27/16 04/20/16 Unknown History Docusate Sodium [Colace] 100 mg PO BID PRN #20 capsule 07/11/16 Unknown Rx HYDROcodone/APAP 5-325 [[place] 1 each PO Q6HR PRN #15 tablet 07/11/16 Unknown Rx 5-325 mg TAB] Ondansetron [Zofran Odt] 4 mg PO Q8HR PRN #20 tab.rapdis 07/11/16 Unknown Rx Cyclobenzaprine [Flexeril] 10 mg PO QHS PRN #10 tablet 10/04/18 Unknown Rx Naproxen [Naprosyn TAB] 500 mg PO BID PRN #20 tablet 10/04/18 Unknown Rx Ibuprofen [Motrin 600 MG tab] 600 mg PO Q8H PRN #20 tablet 11/19/18 Unknown Rx methOCARBAMOL [Robaxin TAB] 500 mg PO Q6H PRN #14 tablet 11/19/18 Unknown Rx traMADoL [Ultram] 50 mg PO Q6HR PRN #12 tablet 11/19/18 Unknown Rx traMADoL [Ultram 50 MG tab] 50 mg PO Q6HR PRN #20 tablet 10/07/19 Unknown Rx Acetaminophen [Acetaminophen TAB] 1 - 2 tab PO Q6HR PRN #24 tablet 11/02/19 Unknown Rx Acetaminophen [Tylenol] 650 mg PO Q8HR PRN #14 capsule 12/15/19 Unknown Rx ED Physical Exam - General Limitations: No Limitations - Other Other exam information: General: Awake, appropriately interactive, no acute distress. Neck: Supple. Full range of motion intact. Cardiovascular: Normal peripheral perfusion. Pulmonary: No respiratory distress. Patient is speaking normally without use of accessory muscles. Skin: No apparent rashes or lesions. Neurological: No facial asymmetry. Speech is clear. Follows commands. Patient is alert and oriented. Musculoskeletal: Tenderness to palpation along the lateral aspect of the right right ankle with mild soft tissue swelling. No obvious deformity. No tenderness at the base of the fifth metatarsal. No tenderness to the dorsum of the foot. No plantar ecchymosis. Ambulatory out assistance. Tierney test is negative. Distal neurovascular and motor/sensory function intact. Psych: Cooperative. Appropriate mood and affect. ED Course Vital Signs 07/16/20 20:46 Temperature 98.7 F Pulse Rate 89 Respiratory 18 Rate Blood Pressure 124/89 O2 Sat by Pulse 99 Oximetry ED Medical Decision Making - Medical Decision Making Differential diagnosis including but not limited to: sprain, strain, fracture, contusion, dislocation, Achilles tendon injury Patient presents emergency department with complaints of traumatic right ankle pain for 2 days. Vital signs are stable. Neurovascular exam is intact. He is ambulatory without assistance. X-ray of the ankle ordered by triage nurse prior to medical screening examination shows soft tissue swelling without acute fracture. Patient will be discharged home with Hoang wrap and appropriate analgesics. Instructed to follow-up with primary care provider this week. Encouraged to elevate the right ankle and refrain from weightbearing until symptoms improve. Patient expressed understanding and is agreeable to plan of care. RICE precautions discussed. Strict return precautions provided. History, exam, diagnostic testing, and current condition do not suggest worrisome pathology to warrant further testing, continued ED treatment, admission, or surgical evaluation at this point. Given the low probability of a significant medical illness, it would be more likely to result in harm than benefit to perform further testing at this stage. Discussed findings, presumptive diagnosis, need for follow-up and specific signs/symptoms that should prompt immediate return to the emergency department. Instructions were explained in detail to the patient in addition to giving written discharge information. Patient expressed understanding and was given the opportunity to ask questions, all of which were satisfactorily answered prior to discharge home. Critical care attestation.: If time is entered above; I have spent that time in minutes in the direct care of this critically ill patient, excluding procedure time. ED Disposition Clinical Impression: Right ankle sprain Qualifiers: Encounter type: initial encounter Involved ligament of ankle: unspecified ligament Qualified Code(s): S93.401A - Sprain of unspecified ligament of right ankle, initial encounter Disposition: TO HOME OR SELFCARE Is pt being admited?: No Does the pt Need Aspirin: No Condition: Stable Instructions: Ankle Sprain, [id number] Additional Instructions: Take Tylenol every 4 hours as needed for pain. Wear Hoang wrap as directed. Keep right foot elevated as often as possible to reduce swelling. Apply ice to the affected area as needed to reduce swelling. Follow-up with your primary care provider this week. Call tomorrow to schedule an appointment. Return to the emergency department immediately for new or worsening symptoms. Referrals: [facility] [Outside] - 3-5 Days Forms: Work/School Release Form(ED) Time of Disposition: 21:56
== END 2020-07-17 | disposition home or self-care (01) ==
LOC: ED 20:06
DX: S93.401A Sprain of unspecified ligament of right ankle, initial encounter (principal); F41.9 Anxiety disorder, unspecified; Z86.73 Personal history of transient ischemic attack (TIA), and cerebral infarction without residual deficits; Z90.89 Acquired absence of other organs; Z98.890 Other specified postprocedural states; Z79.1 Long term (current) use of non-steroidal anti-inflammatories (NSAID); Z79.899 Other long term (current) drug therapy; X50.1XXA Overexertion from prolonged static or awkward postures, initial encounter; Y93.89 Activity, other specified; Y92.89 Other specified places as the place of occurrence of the external cause; Y99.8 Other external cause status
CPT/HCPCS: 99283

== ENCOUNTER 2020-12-21 12:37 | Emergency (ER) | payer MEDICAID ==
[2020-12-21] MEDS ORDERED: SODIUM CHLORIDE 0.9% 1000 ML 1,000 ML IV ONE (15:34)
[2020-12-21] MEDS ORDERED: cloNIDine 0.1 MG TAB PO ONE (15:34)
[2020-12-21] MEDS ORDERED: ONDANSETRON 4 MG/2 ML INJ IV ONE (15:34)
--- NOTE | 2020-12-21 15:46 | Emergency Department Report ---
ED Medical Clearance HPI - General Chief complaint: Medical Clearance Stated complaint: PAIN MED WITHDRAWALS Time Seen by Provider: 12/21/20 14:03 Source: patient Mode of arrival: Stretcher Limitations: No Limitations - History of Present Illness Initial comments: 35-year-old male presents to the hospital requesting help with opiate withdrawal. Patient has been chronically on Percocet 10 mg 3 times daily since September for back pain. Patient ran out of medication 2 days ago and is interested in detoxing off of opioids. He missed his appointment today with the Suboxone clinic due to phone issues. They were unable to reschedule him until next week. Patient wants something to help with withdrawal symptoms. He is currently having jitters, nervous feeling, trouble sleeping, and feeling anxious he denies nausea, vomiting, or diarrhea. He denies alcohol or other substance abuse. Patient has been in pain management and has also had patient has been on Suboxone clinic in the past Home medications: Home Medications Medication Instructions Recorded Confirmed Last Taken LORazepam [Ativan] 1 mg PO BID PRN 01/15/15 04/20/16 01/15/15 FLUoxetine [PROzac] 10 mg PO QDAY 01/27/16 04/20/16 Unknown risperiDONE [RisperiDONE] 1 mg PO QDAY 01/27/16 04/20/16 Unknown Previous Rx's Medication Instructions Recorded Last Taken Type Cyclobenzaprine [Flexeril 10 MG 10 mg PO TID PRN #15 tablet 01/27/16 Unknown Rx TAB] Docusate Sodium [Colace] 100 mg PO BID PRN #20 capsule 07/11/16 Unknown Rx HYDROcodone/APAP 5-325 [[place] 1 each PO Q6HR PRN #15 tablet 07/11/16 Unknown Rx 5-325 mg TAB] Ondansetron [Zofran Odt] 4 mg PO Q8HR PRN #20 tab.rapdis 07/11/16 Unknown Rx Cyclobenzaprine [Flexeril] 10 mg PO QHS PRN #10 tablet 10/04/18 Unknown Rx Naproxen [Naprosyn TAB] 500 mg PO BID PRN #20 tablet 10/04/18 Unknown Rx Ibuprofen [Motrin 600 MG tab] 600 mg PO Q8H PRN #20 tablet 11/19/18 Unknown Rx methOCARBAMOL [Robaxin TAB] 500 mg PO Q6H PRN #14 tablet 11/19/18 Unknown Rx traMADoL [Ultram] 50 mg PO Q6HR PRN #12 tablet 11/19/18 Unknown Rx traMADoL [Ultram 50 MG tab] 50 mg PO Q6HR PRN #20 tablet 10/07/19 Unknown Rx Acetaminophen [Acetaminophen TAB] 1 - 2 tab PO Q6HR PRN #24 tablet 11/02/19 Unknown Rx Acetaminophen [Tylenol] 650 mg PO Q8HR PRN #14 capsule 12/15/19 Unknown Rx Ondansetron [Zofran Odt] 4 mg PO Q8HR PRN #20 tab.rapdis 12/21/20 Unknown Rx cloNIDine [Catapres] 0.1 mg PO BID #14 tablet 12/21/20 Unknown Rx hydrOXYzine PAMOATE [Vistaril] 50 mg PO QHS PRN #14 capsule 12/21/20 Unknown Rx Allergies/Adverse reactions: Allergies Allergy/AdvReac Type Severity Reaction Status Date / Time ketorolac [From Toradol] Allergy Diarrhea Verified 10/22/19 13:49 NSAIDS (Non-Steroidal Allergy Diarrhea Verified 10/22/19 13:49 Anti-Inflamma ED Review of Systems ROS: Stated complaint: PAIN MED WITHDRAWALS Other details as noted in HPI Comment: All other systems reviewed and negative ED Past Medical Hx - Past Medical History Hx CVA: Yes (?TIA) Hx Renal Disease: Yes (hx kidney stones) Hx Kidney Stones: Yes Hx Psychiatric Treatment: Yes (PTSD, ANXIETY,depression/ schizophrenia) Additional medical history: SPINAL STENOSIS, 4 BULGING DISKS LOWER BACK,. Fractured spine - Surgical History Hx Appendectomy: Yes Additional Surgical History: Right inguinal hernia repair for the second time in 2009, left inguinal hernia repair in 2009. tonsillectomy - Social History Smoking Status: Never Smoker Substance Use Type: None - Medications Home Medications: Home Medications Medication Instructions Recorded Confirmed Last Taken Type LORazepam [Ativan] 1 mg PO BID PRN 01/15/15 04/20/16 01/15/15 History Cyclobenzaprine [Flexeril 10 MG 10 mg PO TID PRN #15 tablet 01/27/16 04/20/16 Unknown Rx TAB] FLUoxetine [PROzac] 10 mg PO QDAY 01/27/16 04/20/16 Unknown History risperiDONE [RisperiDONE] 1 mg PO QDAY 01/27/16 04/20/16 Unknown History Docusate Sodium [Colace] 100 mg PO BID PRN #20 capsule 07/11/16 Unknown Rx HYDROcodone/APAP 5-325 [[place] 1 each PO Q6HR PRN #15 tablet 07/11/16 Unknown Rx 5-325 mg TAB] Ondansetron [Zofran Odt] 4 mg PO Q8HR PRN #20 tab.rapdis 07/11/16 Unknown Rx Cyclobenzaprine [Flexeril] 10 mg PO QHS PRN #10 tablet 10/04/18 Unknown Rx Naproxen [Naprosyn TAB] 500 mg PO BID PRN #20 tablet 10/04/18 Unknown Rx Ibuprofen [Motrin 600 MG tab] 600 mg PO Q8H PRN #20 tablet 11/19/18 Unknown Rx methOCARBAMOL [Robaxin TAB] 500 mg PO Q6H PRN #14 tablet 11/19/18 Unknown Rx traMADoL [Ultram] 50 mg PO Q6HR PRN #12 tablet 11/19/18 Unknown Rx traMADoL [Ultram 50 MG tab] 50 mg PO Q6HR PRN #20 tablet 10/07/19 Unknown Rx Acetaminophen [Acetaminophen TAB] 1 - 2 tab PO Q6HR PRN #24 tablet 11/02/19 Unknown Rx Acetaminophen [Tylenol] 650 mg PO Q8HR PRN #14 capsule 12/15/19 Unknown Rx Ondansetron [Zofran Odt] 4 mg PO Q8HR PRN #20 tab.rapdis 12/21/20 Unknown Rx cloNIDine [Catapres] 0.1 mg PO BID #14 tablet 12/21/20 Unknown Rx hydrOXYzine PAMOATE [Vistaril] 50 mg PO QHS PRN #14 capsule 12/21/20 Unknown Rx ED Physical Exam - General Limitations: No Limitations - Other Other exam information: General: No acute distress Head: Atraumatic Eyes: normal appearance ENT: Moist mucous membranes Neck: Normal appearance, no midline tenderness Chest: Clear to auscultation bilaterally CV: Mild tachycardia, regular rate and rhythm Abdomen: Soft, normal bowel sounds, nontender, nondistended, no rebound or guarding Back: Normal inspection Extremity: Normal inspection, full range of motion Neuro: Alert O x 3, no facial asymmetry, speech clear, no gross motor sensory deficit, no tremor Psych: Appropriate behavior Skin: No rash ED Course Vital Signs 12/21/20 12/21/20 12/21/20 12:42 15:43 16:05 Temperature 98.5 F Pulse Rate 103 H 99 H Pulse Rate [ 90 Lying] Pulse Rate [ 106 H Sitting] Pulse Rate [ 119 H Standing] Respiratory 16 Rate Blood Pressure 141/68 Blood Pressure 146/92 [Lying] Blood Pressure 129/98 [Right] Blood Pressure 141/90 [Sitting] Blood Pressure 140/96 [Standing] O2 Sat by Pulse 95 Oximetry 12/21/20 17:19 Temperature 98.3 F Pulse Rate 91 H Pulse Rate [ Lying] Pulse Rate [ Sitting] Pulse Rate [ Standing] Respiratory 18 Rate Blood Pressure 127/86 Blood Pressure [Lying] Blood Pressure [Right] Blood Pressure [Sitting] Blood Pressure [Standing] O2 Sat by Pulse 98 Oximetry - Reevaluation(s) Reevaluation #1: 12/21/20 17:46 Patient does report feeling better and "mellowed out". ED Medical Decision Making - Lab Data Result diagrams: 12/21/20 15:36 12/21/20 15:36 Lab Results 12/21/20 12/21/20 12/21/20 Range/Units 15:36 15:36 15:36 WBC 8.5 (4.5-11.0) K/mm3 RBC 4.86 (3.65-5.03) M/mm3 Hgb 15.7 H (11.8-15.2) gm/dl Hct 45.0 (35.5-45.6) % MCV 93 (84-94) fl MCH 32 (28-32) pg MCHC 35 H (32-34) % RDW 12.9 L (13.2-15.2) % Plt Count 275 (140-440) K/mm3 Lymph % (Auto) 21.9 (13.4-35.0) % [place] % (Auto) 6.3 (0.0-7.3) % Eos % (Auto) 0.1 (0.0-4.3) % Baso % (Auto) 0.5 (0.0-1.8) % Lymph # (Auto) 1.9 (1.2-5.4) K/mm3 [place] # (Auto) 0.5 (0.0-0.8) K/mm3 Eos # (Auto) 0.0 (0.0-0.4) K/mm3 Baso # (Auto) 0.0 (0.0-0.1) K/mm3 Seg Neutrophils % 71.2 H (40.0-70.0) % Seg Neutrophils # 6.0 (1.8-7.7) K/mm3 Sodium 140 (137-145) mmol/L Potassium 4.4 (3.6-5.0) mmol/L Chloride 101.4 (98-107) mmol/L Carbon Dioxide 24 (22-30) mmol/L Anion Gap 19 mmol/L BUN 17 (9-20) mg/dL Creatinine 0.9 (0.8-1.3) mg/dL Estimated GFR > 60 ml/min BUN/Creatinine Ratio 19 % Glucose 85 (75-100) mg/dL Calcium 9.3 (8.4-10.2) mg/dL Plasma/Serum Alcohol < 0.01 (0-0.07) % - Medical Decision Making 35-year-old male with history of opioid dependence presents to the hospital with complaints of Percocet withdrawal since running out of medication. Patient wants detox of medication. He missed his Suboxone clinic appointment today. He presented with tachycardia that worsen with standing. patient was treated in the ED with clonidine and normal saline with improvement of heart rate. Patient tolerated clonidine without hypotension. Patient be discharged on clonidine for opiate withdrawal symptoms, Zofran in case he develops nausea and vomiting, and Vistaril to help with sleep and encouraged to follow-up with with his clinic as scheduled for Suboxone treatment ED Disposition Clinical Impression: Opioid dependence, Opioid withdrawal Disposition: 01 HOME / SELF CARE / HOMELESS Is pt being admited?: No Does the pt Need Aspirin: No Condition: Stable Instructions: Opioid Withdrawal Additional Instructions: Take the medication as prescribed. Follow-up with your psychiatrist/Suboxone clinic for further treatment. Return if symptoms worsen as indicated by your discharge instructions. Prescriptions: cloNIDine [Catapres] 0.1 mg PO BID #14 tablet hydrOXYzine PAMOATE [Vistaril] 50 mg PO QHS PRN #14 capsule PRN Reason: Insomnia Ondansetron [Zofran Odt] 4 mg PO Q8HR PRN #20 tab.rapdis PRN Reason: Nausea And Vomiting Referrals: PRIMARY CARE, [Primary Care Provider] - 3-5 Days LANCE HASSAN MD [Staff Physician] - 3-5 Days Time of Disposition: 17:40
[2020-12-21 16:13] LABS: BUN/Creatinine Ratio 19; Blood Urea Nitrogen 17 mg/dL (9-20); Calcium 9.3 mg/dL (8.4-10.2); Hemolysis Index 8
[2020-12-21 16:32] LABS: Basophils % (Auto) 0.5 % (0.0-1.8); Eosinophils % (Auto) 0.1 % (0.0-4.3); Hemoglobin 15.7 gm/dl (11.8-15.2); Lymphocytes # (Auto) 1.9 K/mm3 (1.2-5.4); Lymphocytes % (Auto) 21.9 % (13.4-35.0); Mean Corpuscular HGB Conc 35 % (32-34); Mean Corpuscular Volume 93 fl (84-94); Monocytes # (Auto) 0.5 K/mm3 (0.0-0.8); Monocytes % (Auto) 6.3 % (0.0-7.3); Platelet Count 275 K/mm3 (140-440); Red Blood Count 4.86 M/mm3 (3.65-5.03); Red Cell Distribution Width 12.9 % (13.2-15.2)
[2020-12-21 17:19] VITALS: BP 127/86
== END 2020-12-21 18:06 | disposition home or self-care (01) ==
LOC: ED 12:37
DX: F11.23 Opioid dependence with withdrawal (principal); Z88.8 Allergy status to other drugs, medicaments and biological substances; F41.9 Anxiety disorder, unspecified; F43.10 Post-traumatic stress disorder, unspecified; Z90.49 Acquired absence of other specified parts of digestive tract; Z90.89 Acquired absence of other organs
CPT/HCPCS: 36415; 80048; 85025; 96361; 96374; 99284; J2405; J7030; 80320; G0480

== ENCOUNTER 2021-06-27 21:21 | Emergency (ER) | payer MEDICAID ==
--- NOTE | 2021-06-28 00:43 | Emergency Department Report ---
<SHIREENNORM - Last Filed: 06/28/21 00:39> ED Neuro Deficit HPI - General Chief Complaint: Weakness Stated Complaint: LF SIDED WEAKNESS Source: patient, EMS Mode of arrival: Ambulatory Limitations: No Limitations - History of Present Illness Initial Comments: 35-year-old male with a past medical history of past medical history of anxiety, schizophrenia, paranoid schizophrenia, PTSD, kidney stones, chronic low back pain and reported history of TIAs presents to the emergency department complaining of acute exacerbation of possible TIAs which has been occurring over the last 24 to 30 hours. States has been having issues of headaches associated with blurred vision, dizziness, nausea, left sided weakness that comes and goes spontaneously in spurts unknown etiology denies any recent neck trauma, medication changes, illicit drug use, chest pain, palpitations, fever, chills, sweats, recent travel. -: Gradual, days(s) History of same: Yes Place: home Severity: mild, moderate Quality: weak, tingling, intermittant Improves With: none Worsens With: none Associated Symptoms: headaches, malise, weakness. denies: chest pain, cough, diaphoresis, fever/chills, nausea/vomiting, seizures, shortness of breath - Related Data Home Medications: Home Medications Medication Instructions Recorded Confirmed Last Taken LORazepam [Ativan] 1 mg PO BID PRN 01/15/15 04/20/16 01/15/15 FLUoxetine [PROzac] 10 mg PO QDAY 01/27/16 04/20/16 Unknown risperiDONE [RisperiDONE] 1 mg PO QDAY 01/27/16 04/20/16 Unknown Previous Rx's Medication Instructions Recorded Last Taken Type Cyclobenzaprine [Flexeril 10 MG 10 mg PO TID PRN #15 tablet 01/27/16 Unknown Rx TAB] Docusate Sodium [Colace] 100 mg PO BID PRN #20 capsule 07/11/16 Unknown Rx HYDROcodone/APAP 5-325 [[place] 1 each PO Q6HR PRN #15 tablet 07/11/16 Unknown Rx 5-325 mg TAB] Ondansetron [Zofran Odt] 4 mg PO Q8HR PRN #20 tab.rapdis 07/11/16 Unknown Rx Cyclobenzaprine [Flexeril] 10 mg PO QHS PRN #10 tablet 10/04/18 Unknown Rx Naproxen [Naprosyn TAB] 500 mg PO BID PRN #20 tablet 10/04/18 Unknown Rx Ibuprofen [Motrin 600 MG tab] 600 mg PO Q8H PRN #20 tablet 11/19/18 Unknown Rx methOCARBAMOL [Robaxin TAB] 500 mg PO Q6H PRN #14 tablet 11/19/18 Unknown Rx traMADoL [Ultram] 50 mg PO Q6HR PRN #12 tablet 11/19/18 Unknown Rx traMADoL [Ultram 50 MG tab] 50 mg PO Q6HR PRN #20 tablet 10/07/19 Unknown Rx Acetaminophen [Acetaminophen TAB] 1 - 2 tab PO Q6HR PRN #24 tablet 11/02/19 Unk nown Rx Acetaminophen [Tylenol] 650 mg PO Q8HR PRN #14 capsule 12/15/19 Unknown Rx Ondansetron [Zofran Odt] 4 mg PO Q8HR PRN #20 tab.rapdis 12/21/20 Unknown Rx cloNIDine [Catapres] 0.1 mg PO BID #14 tablet 12/21/20 Unknown Rx hydrOXYzine PAMOATE [Vistaril] 50 mg PO QHS PRN #14 capsule 12/21/20 Unknown Rx Allergies/Adverse Reactions: Allergies Allergy/AdvReac Type Severity Reaction Status Date / Time ketorolac [From Toradol] Allergy Diarrhea Verified 10/22/19 13:49 NSAIDS (Non-Steroidal Allergy Diarrhea Verified 10/22/19 13:49 Anti-Inflamma ED Review of Systems Comment: All other systems reviewed and negative ED Past Medical Hx - Past Medical History Previous Medical History?: Yes Hx CVA: Yes (?TIA) Hx Renal Disease: Yes (hx kidney stones) Hx Kidney Stones: Yes Hx Psychiatric Treatment: Yes (PTSD, ANXIETY,depression/ schizophrenia) Additional medical history: SPINAL STENOSIS, 4 BULGING DISKS LOWER BACK,. Fractured spine - Surgical History Past Surgical History?: Yes Hx Appendectomy: Yes Additional Surgical History: Right inguinal hernia repair for the second time in 2009, left inguinal hernia repair in 2009. tonsillectomy - Social History Smoking Status: Never Smoker Substance Use Type: None - Medications Home Medications: Home Medications Medication Instructions Recorded Confirmed Last Taken Type LORazepam [Ativan] 1 mg PO BID PRN 01/15/15 04/20/16 01/15/15 History Cyclobenzaprine [Flexeril 10 MG 10 mg PO TID PRN #15 tablet 01/27/16 04/20/16 Unknown Rx TAB] FLUoxetine [PROzac] 10 mg PO QDAY 01/27/16 04/20/16 Unknown History risperiDONE [RisperiDONE] 1 mg PO QDAY 01/27/16 04/20/16 Unknown History Docusate Sodium [Colace] 100 mg PO BID PRN #20 capsule 07/11/16 Unknown Rx HYDROcodone/APAP 5-325 [[place] 1 each PO Q6HR PRN #15 tablet 07/11/16 Unknown Rx 5-325 mg TAB] Ondansetron [Zofran Odt] 4 mg PO Q8HR PRN #20 tab.rapdis 07/11/16 Unknown Rx Cyclobenzaprine [Flexeril] 10 mg PO QHS PRN #10 tablet 10/04/18 Unknown Rx Naproxen [Naprosyn TAB] 500 mg PO BID PRN #20 tablet 10/04/18 Unknown Rx Ibuprofen [Motrin 600 MG tab] 600 mg PO Q8H PRN #20 tablet 11/19/18 Unknown Rx methOCARBAMOL [Robaxin TAB] 500 mg PO Q6H PRN #14 tablet 11/19/18 Unknown Rx traMADoL [Ultram] 50 mg PO Q6HR PRN #12 tablet 11/19/18 Unknown Rx traMADoL [Ultram 50 MG tab] 50 mg PO Q6HR PRN #20 tablet 10/07/19 Unknown Rx Acetaminophen [Acetaminophen TAB] 1 - 2 tab PO Q6HR PRN #24 tablet 11/02/19 Unknown Rx Acetaminophen [Tylenol] 650 mg PO Q8HR PRN #14 capsule 12/15/19 Unknown Rx Ondansetron [Zofran Odt] 4 mg PO Q8HR PRN #20 tab.rapdis 12/21/20 Unknown Rx cloNIDine [Catapres] 0.1 mg PO BID #14 tablet 12/21/20 Unknown Rx hydrOXYzine PAMOATE [Vistaril] 50 mg PO QHS PRN #14 capsule 12/21/20 Unknown Rx ED Neuro Physical Exam - General Limitations: No Limitations General appearance: alert, in no apparent distress - Head Head exam: Present: atraumatic, normocephalic, normal inspection - Eye Eye exam: Present: normal appearance, PERRL, EOMI. Absent: nystagmus Pupils: Present: normal accommodation - ENT ENT exam: Present: mucous membranes moist - Neck Neck exam: Present: normal inspection, full ROM - Respiratory Respiratory exam: Present: normal lung sounds bilaterally. Absent: respiratory distress, wheezes, rales - Cardiovascular Cardiovascular Exam: Present: regular rate, normal rhythm. Absent: systolic murmur, diastolic murmur, rubs, gallop - GI/Abdominal GI/Abdominal exam: Present: soft, normal bowel sounds - Rectal Rectal exam: Present: deferred - Extremities Exam Extremities exam: Present: normal inspection - Back Exam Back exam: Present: normal inspection - Neurological Exam Neurological exam: Present: alert, oriented X3, CN II-XII intact - NIHSS 1a. Level of Consciousness: alert/keenly responsive 1b. LOC Questions: answers both correctly 1c. LOC Commands: performs tasks correctly 2. Best Gaze: normal 3. Visual: no visual loss 4. Facial Palsy: normal symmetrical movement 5b. Motor Arm Right: no drift 5a. Motor Arm Left: drift 6a. Motor Leg Left: no drift 6b. Motor Leg Right: no drift 7. Limb Ataxia: absent 8. Sensory: normal 9. Best Language: no aphasia 10. Dysarthria: normal 11. Extinction/Inattention: no abnormality Total Score: 1 Stroke Severity: Minor Stroke - Psychiatric Psychiatric exam: Present: normal affect, normal mood - Skin Skin exam: Present: warm, dry, intact, normal color. Absent: rash ED Disposition Clinical Impression: Nonspecific dizziness, Headache Disposition: 01 HOME / SELF CARE / HOMELESS Condition: Stable Instructions: Dizziness, [id number] Additional Instructions: Please follow-up with your regular doctor within 1 to 2 weeks. You may return if your symptoms worsen. Print Language: GEORGIAN <CARY CASAS - Last Filed: 06/28/21 02:53> ED Review of Systems ROS: Stated complaint: LF SIDED WEAKNESS Other details as noted in HPI ED Neuro Physical Exam - General Suspected Stroke: No - Psychiatric Psychiatric exam: Present: flat affect. Absent: normal affect ED Course Vital Signs 06/27/21 21:36 Temperature 97.9 F Pulse Rate 115 H Respiratory 18 Rate Blood Pressure 130/100 [Right] O2 Sat by Pulse 97 Oximetry - Lab Data Result diagrams: 06/28/21 00:44 06/28/21 00:44 Lab Results 06/28/21 06/28/21 06/28/21 Range/Units 00:44 00:44 00:44 WBC 9.0 (4.5-11.0) K/mm3 RBC 4.61 (3.65-5.03) M/mm3 Hgb 14.2 (11.8-15.2) gm/dl Hct 42.6 (35.5-45.6) % MCV 92 (84-94) fl MCH 31 (28-32) pg MCHC 33 (32-34) % RDW 13.3 (13.2-15.2) % Plt Count 252 (140-440) K/mm3 Lymph % (Auto) 30.1 (13.4-35.0) % [place] % (Auto) 7.3 (0.0-7.3) % Eos % (Auto) 2.6 (0.0-4.3) % Baso % (Auto) 0.6 (0.0-1.8) % Lymph # (Auto) 2.7 (1.2-5.4) K/mm3 [place] # (Auto) 0.7 (0.0-0.8) K/mm3 Eos # (Auto) 0.2 (0.0-0.4) K/mm3 Baso # (Auto) 0.1 (0.0-0.1) K/mm3 Seg Neutrophils % 59.4 (40.0-70.0) % Seg Neutrophils # 5.3 (1.8-7.7) K/mm3 PT (12.2-14.9) Sec. INR (0.87-1.13) APTT 25.8 (24.2-36.6) Sec. Thrombin Time 15.9 (15.1-19.6) Sec. Sodium 143 (137-145) mmol/L Potassium 4.6 (3.6-5.0) mmol/L Chloride 105.6 (98-107) mmol/L Carbon Dioxide 27 (22-30) mmol/L Anion Gap 15 mmol/L BUN 15 (9-20) mg/dL Creatinine 1.1 (0.8-1.3) mg/dL Estimated GFR > 60 ml/min BUN/Creatinine Ratio 14 % Glucose 101 H (75-100) mg/dL Calcium 9.0 (8.4-10.2) mg/dL Magnesium (1.7-2.3) mg/dL Total Bilirubin 0.20 (0.1-1.2) mg/dL AST 15 (5-40) units/L ALT 10 (7-56) units/L Alkaline Phosphatase 62 (35-129) units/L Total Creatine Kinase 148 (55-170) units/L CK-MB (CK-2) 1.7 (0.0-4.0) ng/mL CK-MB (CK-2) Rel Index 1.1 (0-4) Troponin T < 0.010 (0.00-0.029) ng/mL Total Protein 5.5 L (6.3-8.2) g/dL Albumin 3.8 L (3.9-5) g/dL Albumin/Globulin Ratio 2.2 % Urine Color (Yellow) Urine Turbidity (Clear) Urine pH (5.0-7.0) Ur Specific [place] (1.003-1.030) Urine Protein (Negative) mg/dL Urine Glucose (UA) (Negative) mg/dL Urine Ketones (Negative) mg/dL Urine Blood (Negative) Urine Nitrite (Negative) Urine Bilirubin (Negative) Urine Urobilinogen (<2.0) mg/dL Ur Leukocyte Esterase (Negative) Urine WBC (Auto) (0.0-6.0) /HPF Urine RBC (Auto) (0.0-6.0) /HPF U Epithel Cells (Auto) (0-13.0) /HPF Hyaline Casts /LPF Urine Mucus /HPF 06/28/21 06/28/21 06/28/21 Range/Units 00:44 00:44 01:07 WBC (4.5-11.0) K/mm3 RBC (3.65-5.03) M/mm3 Hgb (11.8-15.2) gm/dl Hct (35.5-45.6) % MCV (84-94) fl MCH (28-32) pg MCHC (32-34) % RDW (13.2-15.2) % Plt Count (140-440) K/mm3 Lymph % (Auto) (13.4-35.0) % [place] % (Auto) (0.0-7.3) % Eos % (Auto) (0.0-4.3) % Baso % (Auto) (0.0-1.8) % Lymph # (Auto) (1.2-5.4) K/mm3 [place] # (Auto) (0.0-0.8) K/mm3 Eos # (Auto) (0.0-0.4) K/mm3 Baso # (Auto) (0.0-0.1) K/mm3 Seg Neutrophils % (40.0-70.0) % Seg Neutrophils # (1.8-7.7) K/mm3 PT 13.4 (12.2-14.9) Sec. INR 0.92 (0.87-1.13) APTT (24.2-36.6) Sec. Thrombin Time (15.1-19.6) Sec. Sodium (137-145) mmol/L Potassium (3.6-5.0) mmol/L Chloride (98-107) mmol/L Carbon Dioxide (22-30) mmol/L Anion Gap mmol/L BUN (9-20) mg/dL Creatinine (0.8-1.3) mg/dL Estimated GFR ml/min BUN/Creatinine Ratio % Glucose (75-100) mg/dL Calcium (8.4-10.2) mg/dL Magnesium 2.10 (1.7-2.3) mg/dL Total Bilirubin (0.1-1.2) mg/dL AST (5-40) units/L ALT (7-56) units/L Alkaline Phosphatase (35-129) units/L Total Creatine Kinase (55-170) units/L CK-MB (CK-2) (0.0-4.0) ng/mL CK-MB (CK-2) Rel Index (0-4) Troponin T (0.00-0.029) ng/mL Total Protein (6.3-8.2) g/dL Albumin (3.9-5) g/dL Albumin/Globulin Ratio % Urine Color Yellow (Yellow) Urine Turbidity Slightly-cloudy (Clear) Urine pH 6.0 (5.0-7.0) Ur Specific [place] 1.019 (1.003-1.030) Urine Protein <15 mg/dl (Negative) mg/dL Urine Glucose (UA) Neg (Negative) mg/dL Urine Ketones Neg (Negative) mg/dL Urine Blood Neg (Negative) Urine Nitrite Neg (Negative) Urine Bilirubin Neg (Negative) Urine Urobilinogen < 2.0 (<2.0) mg/dL Ur Leukocyte Esterase Neg (Negative) Urine WBC (Auto) 3.0 (0.0-6.0) /HPF Urine RBC (Auto) 1.0 (0.0-6.0) /HPF U Epithel Cells (Auto) < 1.0 (0-13.0) /HPF Hyaline Casts 6 /LPF Urine Mucus 3+ /HPF - Medical Decision Making CT scan is normal. Labs reviewed and all are unremarkable. Patient has no focal neurologic deficits on examination. I discussed results with him. He is stable for discharge home with PCP follow-up within 1 to 2 weeks. Critical care attestation.: If time is entered above; I have spent that time in minutes in the direct care of this critically ill patient, excluding procedure time. ED Disposition Is pt being admited?: No Does the pt Need Aspirin: No Time of Disposition: 02:52
[2021-06-28 00:59] LABS: Basophils # (Auto) 0.1 K/mm3 (0.0-0.1); Basophils % (Auto) 0.6 % (0.0-1.8); Eosinophils # (Auto) 0.2 K/mm3 (0.0-0.4); Eosinophils % (Auto) 2.6 % (0.0-4.3); Hematocrit 42.6 % (35.5-45.6); Hemoglobin 14.2 gm/dl (11.8-15.2); Lymphocytes # (Auto) 2.7 K/mm3 (1.2-5.4); Lymphocytes % (Auto) 30.1 % (13.4-35.0); Mean Corpuscular HGB Conc 33 % (32-34); Mean Corpuscular Volume 92 fl (84-94); Monocytes # (Auto) 0.7 K/mm3 (0.0-0.8); Monocytes % (Auto) 7.3 % (0.0-7.3); Platelet Count 252 K/mm3 (140-440); Red Blood Count 4.61 M/mm3 (3.65-5.03); Red Cell Distribution Width 13.3 % (13.2-15.2)
[2021-06-28 01:20] LABS: Creatine Kinase MB 1.7 ng/mL (0.0-4.0)
[2021-06-28 01:23] LABS: Alanine Aminotransferase 10 units/L (7-56); Albumin 3.8 g/dL (3.9-5); BUN/Creatinine Ratio 14; Blood Urea Nitrogen 15 mg/dL (9-20); Hemolysis Index 13
[2021-06-28 01:24] LABS: INR 0.92 (0.87-1.13)
[2021-06-28 01:28] LABS: Bilirubin,Urine NEG (Negative); Color,Urine Yellow (Yellow)
[2021-06-28 01:29] LABS: Blood,Urine NEG (Negative); Hyaline Casts,Urine 6 /LPF; Mucus,Urine 3+ /HPF; Protein,Urine <15 mg/dL mg/dL (Negative); Urobilinogen,Urine < 2.0 mg/dL (<2.0)
[2021-06-28 01:32] LABS: Partial Thromboplastin Time 25.8 Sec. (24.2-36.6); Thrombin Time 15.9 Sec. (15.1-19.6)
--- NOTE | 2021-06-28 01:40 | Cat Scan Report ---
CT head without contrast INDICATION : Acute onset weakness. TECHNIQUE: Axial imaging performed from the skull apex through the skull base without the use of con trast. All CT examinations performed at this facility utilize dose modulation, iterative reconstruct ion or weight-based dosing, when appropriate, to reduce radiation dose to as low as reasonably achiev able. COMPARISON: 04/01/2019 FINDINGS: No acute intracranial hemorrhage or parenchymal abnormality. Ventricles are normal in si ze and appear symmetric. Soft tissues including the orbits appear normal. No acute osseous abnorm ality. Sinuses and mastoid air cells are clear. IMPRESSION: No acute abnormality or change from 04/01/2019.. Signer Name: Christiano Gleason MD Signed: 06/28/2021 1:35 AM Workstation Name: [email or web address]
[2021-06-28 03:07] VITALS: BP 117/84
--- NOTE | 2021-06-28 20:33 | Electrocardiograph Report ---
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
== END 2021-06-28 03:25 | disposition home or self-care (01) ==
LOC: ED 21:21
DX: R51.9 Headache, unspecified (principal); R42 Dizziness and giddiness; Z86.73 Personal history of transient ischemic attack (TIA), and cerebral infarction without residual deficits; N20.0 Calculus of kidney; F41.9 Anxiety disorder, unspecified; Z98.890 Other specified postprocedural states; Z79.899 Other long term (current) drug therapy
CPT/HCPCS: 36415; 70450; 80053; 81001; 82550; 82553; 83735; 84484; 85025; 85610; 85670; 85730; 93005; 99284

== ENCOUNTER 2021-08-17 10:37 | Emergency (ER) | payer MEDICAID ==
[2021-08-17] MEDS ORDERED: oxyCODONE /ACETAMINOPHEN 5-325MG TAB PO ONE (11:17)
--- NOTE | 2021-08-17 11:22 | Emergency Department Report ---
ED General Adult HPI - General Chief complaint: Urogenital-Male Stated complaint: catheter pain Source: patient, EMS (Verbal report received from emergency medical services. EMS documentation not available at time of chart dictation ), RN notes reviewed, old records reviewed Mode of arrival: Stretcher Limitations: No Limitations - History of Present Illness Initial comments: The patient was evaluated in the emergency department for symptoms described in the history of present illness. He/she was evaluated in the context of the global COVID-19 pandemic, which necessitated consideration that the patient might be at risk for infection with the virus that causes COVID-19. Institutional protocols and algorithms that pertain to the evaluation of patients at risk for COVID-19 are in a state of rapid change based on information released by regulatory bodies including the CDC and federal and state organizations. These policies and algorithms were followed during the patient's care in the emergency department. Please note that these policies, procedures and recommendations changed on a rapid basis. Please note this patient has an alternative This patient is a pleasant and cooperative 35-year-old gentleman whom I saw a few days ago, with a complaint of urinary retention. He had an essentially unremarkable ER work-up, and cultures have been subsequently negative. He has follow-up with his outpatient urologist on August 22, in 5 days. He presents today with a complaint of bladder spasms, possible discharge from his urethra meatus, and some bloody urine. No fever. No vomiting. Mild abdominal cramping. EMS reports unremarkable vital signs in the field. Patient endorses compliance with his medications. -: Gradual Location: abdomen, genitals Severity scale (0 -10): 0 Consistency: intermittent Improves with: none Worsens with: none - Related Data Home Medications Medication Instructions Recorded Confirmed Last Taken LORazepam [Ativan] 1 mg PO BID PRN 01/15/15 04/20/16 01/15/15 FLUoxetine [PROzac] 10 mg PO QDAY 01/27/16 04/20/16 Unknown risperiDONE [RisperiDONE] 1 mg PO QDAY 01/27/16 04/20/16 Unknown Previous Rx's Medication Instructions Recorded Last Taken Type Cyclobenzaprine [Flexeril 10 MG 10 mg PO TID PRN #15 tablet 01/27/16 Unknown Rx TAB] Docusate Sodium [Colace] 100 mg PO BID PRN #20 capsule 07/11/16 Unknown Rx HYDROcodone/APAP 5-325 [[place] 1 each PO Q6HR PRN #15 tablet 07/11/16 Unknown Rx 5-325 mg TAB] Ondansetron [Zofran Odt] 4 mg PO Q8HR PRN #20 tab.rapdis 07/11/16 Unknown Rx Cyclobenzaprine [Flexeril] 10 mg PO QHS PRN #10 tablet 10/04/18 Unknown Rx Naproxen [Naprosyn TAB] 500 mg PO BID PRN #20 tablet 10/04/18 Unknown Rx Ibuprofen [Motrin 600 MG tab] 600 mg PO Q8H PRN #20 tablet 11/19/18 Unknown Rx methOCARBAMOL [Robaxin TAB] 500 mg PO Q6H PRN #14 tablet 11/19/18 Unknown Rx traMADoL [Ultram] 50 mg PO Q6HR PRN #12 tablet 11/19/18 Unknown Rx traMADoL [Ultram 50 MG tab] 50 mg PO Q6HR PRN #20 tablet 10/07/19 Unknown Rx Acetaminophen [Acetaminophen TAB] 1 - 2 tab PO Q6HR PRN #24 tablet 11/02/19 Unknown Rx Acetaminophen [Tylenol] 650 mg PO Q8HR PRN #14 capsule 12/15/19 Unknown Rx Ondansetron [Zofran Odt] 4 mg PO Q8HR PRN #20 tab.rapdis 12/21/20 Unknown Rx cloNIDine [Catapres] 0.1 mg PO BID #14 tablet 12/21/20 Unknown Rx hydrOXYzine PAMOATE [Vistaril] 50 mg PO QHS PRN #14 capsule 12/21/20 Unknown Rx Allergies Allergy/AdvReac Type Severity Reaction Status Date / Time ketorolac [From Toradol] Allergy Diarrhea Verified 10/22/19 13:49 NSAIDS (Non-Steroidal Allergy Diarrhea Verified 10/22/19 13:49 Anti-Inflamma ED Review of Systems ROS: Stated complaint: POSS KIDNEY STONE Other details as noted in HPI Constitutional: denies: fever Eyes: denies: eye discharge ENT: denies: epistaxis Respiratory: denies: cough Cardiovascular: denies: chest pain Gastrointestinal: denies: vomiting Genitourinary: as per HPI Musculoskeletal: back pain Neurological: denies: weakness ED Past Medical Hx - Past Medical History Hx CVA: Yes (?TIA) Hx Renal Disease: Yes (hx kidney stones) Hx Kidney Stones: Yes Hx Psychiatric Treatment: Yes (PTSD, ANXIETY,depression/ schizophrenia) Additional medical history: SPINAL STENOSIS, 4 BULGING DISKS LOWER BACK,. Fract ured spine - Surgical History Hx Appendectomy: Yes Additional Surgical History: Right inguinal hernia repair for the second time in 2009, left inguinal hernia repair in 2009. tonsillectomy - Social History Smoking Status: Never Smoker Substance Use Type: None - Medications Home Medications: Home Medications Medication Instructions Recorded Confirmed Last Taken Type LORazepam [Ativan] 1 mg PO BID PRN 01/15/15 04/20/16 01/15/15 History Cyclobenzaprine [Flexeril 10 MG 10 mg PO TID PRN #15 tablet 01/27/16 04/20/16 Unknown Rx TAB] FLUoxetine [PROzac] 10 mg PO QDAY 01/27/16 04/20/16 Unknown History risperiDONE [RisperiDONE] 1 mg PO QDAY 01/27/16 04/20/16 Unknown History Docusate Sodium [Colace] 100 mg PO BID PRN #20 capsule 07/11/16 Unknown Rx HYDROcodone/APAP 5-325 [[place] 1 each PO Q6HR PRN #15 tablet 07/11/16 Unknown Rx 5-325 mg TAB] Ondansetron [Zofran Odt] 4 mg PO Q8HR PRN #20 tab.rapdis 07/11/16 Unknown Rx Cyclobenzaprine [Flexeril] 10 mg PO QHS PRN #10 tablet 10/04/18 Unknown Rx Naproxen [Naprosyn TAB] 500 mg PO BID PRN #20 tablet 10/04/18 Unknown Rx Ibuprofen [Motrin 600 MG tab] 600 mg PO Q8H PRN #20 tablet 11/19/18 Unknown Rx methOCARBAMOL [Robaxin TAB] 500 mg PO Q6H PRN #14 tablet 11/19/18 Unknown Rx traMADoL [Ultram] 50 mg PO Q6HR PRN #12 tablet 11/19/18 Unknown Rx traMADoL [Ultram 50 MG tab] 50 mg PO Q6HR PRN #20 tablet 10/07/19 Unknown Rx Acetaminophen [Acetaminophen TAB] 1 - 2 tab PO Q6HR PRN #24 tablet 11/02/19 Unknown Rx Acetaminophen [Tylenol] 650 mg PO Q8HR PRN #14 capsule 12/15/19 Unknown Rx Ondansetron [Zofran Odt] 4 mg PO Q8HR PRN #20 tab.rapdis 12/21/20 Unknown Rx cloNIDine [Catapres] 0.1 mg PO BID #14 tablet 12/21/20 Unknown Rx hydrOXYzine PAMOATE [Vistaril] 50 mg PO QHS PRN #14 capsule 12/21/20 Unknown Rx ED Physical Exam - General Limitations: No Limitations General appearance: alert, in no apparent distress - Head Head exam: Present: atraumatic, normocephalic - Eye Eye exam: Present: normal appearance, EOMI. Absent: nystagmus - ENT ENT exam: Present: normal exam, normal orophraynx, mucous membranes moist, normal external ear exam - Neck Neck exam: Present: normal inspection, full ROM. Absent: tenderness, meningismus - Respiratory Respiratory exam: Present: normal lung sounds bilaterally. Absent: respiratory distress, wheezes, rales, rhonchi, stridor, decreased breath sounds - Cardiovascular Cardiovascular Exam: Present: regular rate, normal rhythm, normal heart sounds. Absent: bradycardia, tachycardia, irregular rhythm, systolic murmur, diastolic murmur, rubs, gallop - GI/Abdominal GI/Abdominal exam: Present: soft. 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 Amezcua catheter in place draining yellow urine that has minimal blood. There is no blood around the urethral meatus) External exam: Present: normal external exam - Extremities Exam Extremities exam: Present: normal inspection, full ROM, other (2+ pulses noted in the bilateral upper and lower extremities. There is no palpable cord. negative Homans sign. Muscular compartments are soft. The pelvis is stable.). Absent: pedal edema, calf tenderness - Back Exam Back exam: Present: normal inspection. Absent: tenderness, CVA tenderness (R), CVA tenderness (L), paraspinal tenderness, vertebral tenderness - Neurological Exam Neurological exam: Present: alert, other (No facial droop. Tongue midline. Extraocular movements intact bilaterally. Facial sensation intact to light touch in V1, V2, V3 distribution bilaterally. 5 and a 5 strength in 4 extremities. Sensation intact to light touch in 4 extremities.) - Psychiatric Psychiatric exam: Present: normal affect, normal mood - Skin Skin exam: Present: warm, dry, intact, normal color. Absent: rash ED Course Vital Signs 08/17/21 10:38 Temperature 98.3 F Pulse Rate 86 Respiratory 16 Rate Blood Pressure 130/80 [Left] O2 Sat by Pulse 99 Oximetry ED Medical Decision Making - Lab Data Vital Signs 08/17/21 10:38 Temperature 98.3 F Pulse Rate 86 Respiratory 16 Rate Blood Pressure 130/80 [Left] O2 Sat by Pulse 99 Oximetry - Medical Decision Making Differential diagnosis, including but not limited to: Bladder spasm, Amezcua catheter in place Assessment and plan: 35-year-old gentleman who is known to myself, presenting with a Amezcua catheter in place, without evidence of urethral meatus discharge, recently had CT scan of the abdomen pelvis which is essentially negative for acute findings, recently had urine culture which is negative for acute findings, draining yellow urine with minimal blood. Suspect bladder spasm. Contacted [place] [facility] front office, patient able to obtain expedited outpatient appointment, has follow-up, August 20, at 11:20 AM. His abdomen is soft and benign, without rebound, guarding or peritoneal signs. Patient is agreeable to closely follow-up with his outpatient urologist. Return precautions are reviewed. Does not appear to have an emergent medical condition present at this time. I recently discharged home with Flomax, morphine sulfate, acetaminophen, and Zofran. Critical care attestation.: If time is entered above; I have spent that time in minutes in the direct care of this critically ill patient, excluding procedure time. ED Disposition Clinical Impression: Amezcua catheter in place Disposition: 01 HOME / SELF CARE / HOMELESS Is pt being admited?: No Does the pt Need Aspirin: No Condition: Good Instructions: Indwelling Urinary Catheter Care, Adult, Indwelling Urinary Catheter Insertion, Care After Additional Instructions: Please continue current outpatient medications. We have contacted the urology office, and patient has an expedited appointment on August 20, at the [facility], 1120 in the morning. Please make certain to follow-up for this appointment. [address] [place] [address] , Please return to the emergency room right away with new pain, worsened pain, migration of pain, projectile vomiting, change in mental status, confusion, inability tolerate liquid feeds, new, worsened or different symptoms not present on the initial emergency room evaluation Referrals: [facility] [Provider Group] - 08/20/21 11:20 am ([address] [facility] [address] [place] [address] , ) Forms: Work/School Release Form(ED)
[2021-08-17 12:24] VITALS: BP 125/89
== END 2021-08-17 12:24 | disposition home or self-care (01) ==
LOC: ED 10:37
DX: Z46.6 Encounter for fitting and adjustment of urinary device (principal); Z86.73 Personal history of transient ischemic attack (TIA), and cerebral infarction without residual deficits; N20.0 Calculus of kidney; Z98.890 Other specified postprocedural states; Z79.899 Other long term (current) drug therapy; Z88.2 Allergy status to sulfonamides; Z91.09 Other allergy status, other than to drugs and biological substances
CPT/HCPCS: 99283

== ENCOUNTER 2021-08-18 17:16 | Emergency (ER) | payer MEDICAID ==
[2021-08-18 17:23] VITALS: BP 122/74
== END 2021-08-19 13:58 | disposition left against medical advice (07) ==
LOC: ED 17:16
DX: T85.9XXA Unspecified complication of internal prosthetic device, implant and graft, initial encounter (principal); Z53.21 Procedure and treatment not carried out due to patient leaving prior to being seen by health care provider; Y84.9 Medical procedure, unspecified as the cause of abnormal reaction of the patient, or of later complication, without mention of misadventure at the time of the procedure; Y92.89 Other specified places as the place of occurrence of the external cause

== ENCOUNTER 2021-08-27 23:50 | Emergency (ER) | payer MEDICAID ==
[2021-08-28 00:44] VITALS: BP 150/99
--- NOTE | 2021-08-28 07:55 | Emergency Department Report ---
ED General Adult HPI - General Chief complaint: Back Pain/Injury Stated complaint: CHRONIC KIDNEY PAIN PUI?: No Time Seen by Provider: 08/28/21 07:50 Source: patient Mode of arrival: Ambulatory Limitations: No Limitations - History of Present Illness Initial comments: This is a 35-year-old male with a past medical history of kidney infection/kidney stone who presents the ED today complaining bilateral flank pain that initially began 2 weeks ago and got worse 2 days ago. Patient states 2 weeks ago he was given prescription medication and went to see the urologist on August 20 and was given antibiotics and Flomax which he completed. Patient states for the past 2 days he has had pain with urination and bilateral flank pain. He denies fever, chills, nausea vomiting, diarrhea, abdominal pain. - Related Data Home Medications Medication Instructions Recorded Confirmed Last Taken LORazepam [Ativan] 1 mg PO BID PRN 01/15/15 04/20/16 01/15/15 FLUoxetine [PROzac] 10 mg PO QDAY 01/27/16 04/20/16 Unknown risperiDONE [RisperiDONE] 1 mg PO QDAY 01/27/16 04/20/16 Unknown Previous Rx's Medication Instructions Recorded Last Taken Type Cyclobenzaprine [Flexeril 10 MG 10 mg PO TID PRN #15 tablet 01/27/16 Unknown Rx TAB] Docusate Sodium [Colace] 100 mg PO BID PRN #20 capsule 07/11/16 Unknown Rx HYDROcodone/APAP 5-325 [[place] 1 each PO Q6HR PRN #15 tablet 07/11/16 Unknown Rx 5-325 mg TAB] Ondansetron [Zofran Odt] 4 mg PO Q8HR PRN #20 tab.rapdis 07/11/16 Unknown Rx Cyclobenzaprine [Flexeril] 10 mg PO QHS PRN #10 tablet 10/04/18 Unknown Rx Naproxen [Naprosyn TAB] 500 mg PO BID PRN #20 tablet 10/04/18 Unknown Rx Ibuprofen [Motrin 600 MG tab] 600 mg PO Q8H PRN #20 tablet 11/19/18 Unknown Rx methOCARBAMOL [Robaxin TAB] 500 mg PO Q6H PRN #14 tablet 11/19/18 Unknown Rx traMADoL [Ultram 50 MG tab] 50 mg PO Q6HR PRN #20 tablet 10/07/19 Unknown Rx Acetaminophen [Acetaminophen TAB] 1 - 2 tab PO Q6HR PRN #24 tablet 11/02/19 Unknown Rx Acetaminophen [Tylenol] 650 mg PO Q8HR PRN #14 capsule 12/15/19 Unknown Rx Ondansetron [Zofran Odt] 4 mg PO Q8HR PRN #20 tab.rapdis 12/21/20 Unknown Rx cloNIDine [Catapres] 0.1 mg PO BID #14 tablet 12/21/20 Unknown Rx hydrOXYzine PAMOATE [Vistaril] 50 mg PO QHS PRN #14 capsule 12/21/20 Unknown Rx Phenazopyridine [Pyridium] 100 mg PO TID #10 tab 08/28/21 Unknown Rx traMADoL [Ultram 50 MG tab] 50 mg PO Q6HR PRN #12 tablet 08/28/21 Unknown Rx Allergies Allergy/AdvReac Type Severity Reaction Status Date / Time ketorolac [From Toradol] Allergy Diarrhea Verified 08/18/21 17:23 NSAIDS (Non-Steroidal Allergy Diarrhea Verified 08/18/21 17:23 Anti-Inflamma ED Review of Systems ROS: Stated complaint: CHRONIC KIDNEY PAIN Other details as noted in HPI Comment: All other systems reviewed and negative ED Past Medical Hx - Past Medical History Hx CVA: Yes (?TIA) Hx Renal Disease: Yes (hx kidney stones) Hx Kidney Stones: Yes Hx Psychiatric Treatment: Yes (PTSD, ANXIETY,depression/ schizophrenia) Additional medical history: SPINAL STENOSIS, 4 BULGING DISKS LOWER BACK,. Fractured spine - Surgical History Hx Appendectomy: Yes Additional Surgical History: Right inguinal hernia repair for the second time in 2009, left inguinal hernia repair in 2009. tonsillectomy - Social History Smoking Status: Never Smoker Substance Use Type: None - Medications Home Medications: Home Medications Medication Instructions Recorded Confirmed Last Taken Type LORazepam [Ativan] 1 mg PO BID PRN 01/15/15 04/20/16 01/15/15 History Cyclobenzaprine [Flexeril 10 MG 10 mg PO TID PRN #15 tablet 01/27/16 04/20/16 Unknown Rx TAB] FLUoxetine [PROzac] 10 mg PO QDAY 01/27/16 04/20/16 Unknown History risperiDONE [RisperiDONE] 1 mg PO QDAY 01/27/16 04/20/16 Unknown History Docusate Sodium [Colace] 100 mg PO BID PRN #20 capsule 07/11/16 Unknown Rx HYDROcodone/APAP 5-325 [[place] 1 each PO Q6HR PRN #15 tablet 07/11/16 Unknown Rx 5-325 mg TAB] Ondansetron [Zofran Odt] 4 mg PO Q8HR PRN #20 tab.rapdis 07/11/16 Unknown Rx Cyclobenzaprine [Flexeril] 10 mg PO QHS PRN #10 tablet 10/04/18 Unknown Rx Naproxen [Naprosyn TAB] 500 mg PO BID PRN #20 tablet 10/04/18 Unknown Rx Ibuprofen [Motrin 600 MG tab] 600 mg PO Q8H PRN #20 tablet 11/19/18 Unknown Rx methOCARBAMOL [Robaxin TAB] 500 mg PO Q6H PRN #14 tablet 11/19/18 Unknown Rx traMADoL [Ultram 50 MG tab] 50 mg PO Q6HR PRN #20 tablet 10/07/19 Unknown Rx Acetaminophen [Acetaminophen TAB] 1 - 2 tab PO Q6HR PRN #24 tablet 11/02/19 Unknown Rx Acetaminophen [Tylenol] 650 mg PO Q8HR PRN #14 capsule 12/15/19 Unknown Rx Ondansetron [Zofran Odt] 4 mg PO Q8HR PRN #20 tab.rapdis 12/21/20 Unknown Rx cloNIDine [Catapres] 0.1 mg PO BID #14 tablet 12/21/20 Unknown Rx hydrOXYzine PAMOATE [Vistaril] 50 mg PO QHS PRN #14 capsule 12/21/20 Unknown Rx Phenazopyridine [Pyridium] 100 mg PO TID #10 tab 08/28/21 Unknown Rx traMADoL [Ultram 50 MG tab] 50 mg PO Q6HR PRN #12 tablet 08/28/21 Unknown Rx ED Physical Exam - General Limitations: No Limitations General appearance: alert, in no apparent distress - Head Head exam: Present: atraumatic, normocephalic - Eye Eye exam: Present: normal appearance - ENT ENT exam: Present: mucous membranes moist - Neck Neck exam: Present: normal inspection - Respiratory Respiratory exam: Present: normal lung sounds bilaterally. Absent: respiratory distress - Cardiovascular Cardiovascular Exam: Present: regular rate, normal rhythm. Absent: systolic murmur, diastolic murmur, rubs, gallop - GI/Abdominal GI/Abdominal exam: Present: soft, normal bowel sounds. Absent: distended, tenderness, guarding, rebound - Rectal Rectal exam: Present: deferred - Extremities Exam Extremities exam: Present: normal inspection, full ROM - Back Exam Back exam: Present: normal inspection, full ROM. Absent: CVA tenderness (R), CVA tenderness (L) - Neurological Exam Neurological exam: Present: alert, oriented X3 - Psychiatric Psychiatric exam: Present: normal affect, normal mood - Skin Skin exam: Present: warm, dry, intact, normal color. Absent: rash ED Course Vital Signs 08/28/21 00:42 Temperature 98.2 F Pulse Rate 102 H Respiratory 16 Rate Blood Pressure 150/99 [Right] O2 Sat by Pulse 99 Oximetry ED Medical Decision Making - Lab Data Result diagrams: 08/28/21 08:18 08/28/21 08:18 - Medical Decision Making 35-year-old male presents with history of kidney stone presents with dysuria/flank pain ED course: Patient received an antibiotic dose and pain control during ED stay Urinalysis is positive for leuks and normal otherwise, mildly elev WBC but all other labs within normal limits. I discussed this findings with the patient. I discussed the patient to make sure he completes all of the antibiotic dose even until symptoms resolve. I discussed with the patient on Pyridium will turn his urine orangeish color but will stop once he stops taking pyridium Patient is in no acute distress, patient also has on instructions were given to him. He had on exam for ED stay. I discussed with patient to follow back up with his urologist. Patient will be sent home on pain medication. Critical care attestation.: If time is entered above; I have spent that time in minutes in the direct care of this critically ill patient, excluding procedure time. ED Disposition Clinical Impression: Flank pain with history of urolithiasis, Dysuria Disposition: 01 HOME / SELF CARE / HOMELESS Is pt being admited?: No Does the pt Need Aspirin: No Condition: Stable Instructions: Flank Pain, Adult, [id number] Additional Instructions: Make sure to follow up with your urologist as discussed. Take all your medications as you've been prescribed. If you have any worsening symptoms or develop new symptoms please return to ED immediately. Prescriptions: Phenazopyridine [Pyridium] 100 mg PO TID #10 tab traMADoL [Ultram 50 MG tab] 50 mg PO Q6HR PRN #12 tablet PRN Reason: Pain Referrals: [facility] [Other] - 3-5 Days Forms: Work/School Release Form Time of Disposition: 09:57
[2021-08-28] MEDS ORDERED: ONDANSETRON 4 MG/2 ML INJ IV ONE (08:04)
[2021-08-28] MEDS ORDERED: SODIUM CHLORIDE 0.9% 1000 ML 1,000 ML IV ONE (08:04)
[2021-08-28 08:53] LABS: Basophils % (Auto) 0.4 % (0.0-1.8); Eosinophils # (Auto) 0.2 K/mm3 (0.0-0.4); Eosinophils % (Auto) 1.4 % (0.0-4.3); Hemoglobin 13.9 gm/dl (11.8-15.2); Lymphocytes # (Auto) 2.2 K/mm3 (1.2-5.4); Lymphocytes % (Auto) 19.2 % (13.4-35.0); Mean Corpuscular HGB Conc 34 % (32-34); Mean Corpuscular Volume 90 fl (84-94); Monocytes # (Auto) 0.8 K/mm3 (0.0-0.8); Monocytes % (Auto) 7.5 % (0.0-7.3); Platelet Count 338 K/mm3 (140-440); Red Blood Count 4.55 M/mm3 (3.65-5.03); Red Cell Distribution Width 13.2 % (13.2-15.2)
[2021-08-28 09:23] LABS: Alanine Aminotransferase 12 units/L (7-56); Albumin 3.8 g/dL (3.9-5); BUN/Creatinine Ratio 14; Blood Urea Nitrogen 13 mg/dL (9-20); Calcium 9.1 mg/dL (8.4-10.2); Hemolysis Index 3
[2021-08-28 09:24] LABS: Bilirubin,Urine NEG (Negative); Blood,Urine SM (Negative); Color,Urine Yellow (Yellow); Protein,Urine <15 mg/dL mg/dL (Negative); Urobilinogen,Urine < 2.0 mg/dL (<2.0)
[2021-08-28] MEDS ORDERED: MORPHINE 4 MG/1 ML INJ IV ONE (09:28)
[2021-08-28] MEDS ORDERED: cefTRIAXone/NS 1 GM/50 ML 1 GM/50 ML BAG IV ONE (09:29)
[2021-08-28 09:56] LABS: Mucus,Urine FEW /HPF
[2021-08-28 09:57] LABS: WBC,Urine > 182.0 /HPF (0.0-6.0)
== END 2021-08-28 10:24 | disposition home or self-care (01) ==
LOC: ED 23:50
DX: R30.0 Dysuria (principal); R10.31 Right lower quadrant pain; R10.32 Left lower quadrant pain; Z87.442 Personal history of urinary calculi; Z86.73 Personal history of transient ischemic attack (TIA), and cerebral infarction without residual deficits; F43.10 Post-traumatic stress disorder, unspecified; F41.9 Anxiety disorder, unspecified; F20.9 Schizophrenia, unspecified; F32.9 Major depressive disorder, single episode, unspecified; M48.00 Spinal stenosis, site unspecified; Z90.89 Acquired absence of other organs; Z98.890 Other specified postprocedural states; Z88.6 Allergy status to analgesic agent; Z88.8 Allergy status to other drugs, medicaments and biological substances
CPT/HCPCS: 36415; 80053; 81001; 85025; 96361; 96365; 96375; 99284; J0696; J2270; J2405; J7030